=== PATIENT | male | born 1965 | race Caucasian/White ===

== ENCOUNTER 2019-11-02 14:21 | Outpatient (CLI) | payer MEDICAID | END 2019-11-02 14:22 | disposition critical access hospital (66) | LOC: EMS 14:21 | PROVIDERS: ATTEND Surgery | DX: R20.0 Anesthesia of skin (principal) | CPT/HCPCS: A0425; A0429 ==

== ENCOUNTER 2019-11-02 14:58 | Emergency (ER) | payer MEDICAID ==
--- NOTE | 2019-11-02 15:18 | ED Physician Documentation ---
History of Present Illness - Stated complaint Stated Complaint: ETOH - Chief complaint Chief Complaint: General - History obtained from History obtained from: Patient, EMS - History of Present Illness Timing: Other (54-year-old gentleman presents by ambulance, he was using alcohol heavily over the holidays and is now cutting down. He had what he thought was a tooth infection causing some mild numbness and swelling of the left face which then kind of freaked him out. He also was feeling dizzy and could not hear out of the right ear. He denied weakness numbness or tingling in the arms or legs. No headache. Noted to have a lot of PVCs by paramedics on the way in.) Review of Systems Constitutional: denies: Fever, Chills Cardiac: denies: Chest pain / pressure, Palpitations Respiratory: denies: Dyspnea, Cough PD PAST MEDICAL HISTORY - Allergies Allergies/Adverse Reactions: Allergies Allergy/AdvReac Type Severity Reaction Status Date / Time No Known Drug Allergies Allergy Verified 11/02/19 15:06 PD ED PE NORMAL - Vitals Vital signs reviewed: Yes - General General: Alert and oriented X 3, No acute distress - HEENT HEENT: PERRL, EOMI, Other (He had a right sided cerumen impaction. No obvious dental infection. No trismus. 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 I recommended labs and a CT of the head which he refused. He only wants his right ear irrigated to remove cerumen which was done successfully. Departure - Departure Disposition: 01 Home, Self Care Clinical Impression: Impacted cerumen of right ear Condition: Good Record reviewed to determine appropriate education?: Yes Instructions: ED Alcohol Abuse Comments: Call your doctor to arrange a follow-up appointment, make the next available appointment. In the interim, return anytime if worse or if new symptoms develop. Your blood pressure was elevated today on check into the emergency department. This does not mean that you have hypertension, it is a common phenomenon to come to the emergency department and have elevated blood pressure. I recommend that you see your primary care physician within the week to have it rechecked when you are feeling better.
[2019-11-02 16:34] VITALS: BP 155/101
== END 2019-11-02 16:00 | disposition home or self-care (01) ==
LOC: ED 14:58
DX: H61.21 Impacted cerumen, right ear (principal); R20.0 Anesthesia of skin; R03.0 Elevated blood-pressure reading, without diagnosis of hypertension
CPT/HCPCS: 69209; 99282; 99283

== ENCOUNTER 2020-03-14 20:33 | Outpatient (CLI) | payer SELFPAY | END 2020-03-14 20:34 | disposition critical access hospital (66) | LOC: EMS 20:33 | PROVIDERS: ATTEND Surgery | DX: R53.1 Weakness (principal); R53.83 Other fatigue; Z72.89 Other problems related to lifestyle | CPT/HCPCS: A0425; A0427 ==

== ENCOUNTER 2020-03-14 21:08 | Inpatient (IN) | payer SELFPAY ==
--- NOTE | 2020-03-14 21:23 | ED Physician Documentation ---
PD HPI DYSPNEA - Stated complaint Stated Complaint: SOA - Chief complaint Chief Complaint: Resp - History obtained from History obtained from: Patient, EMS - History of Present Illness Timing - onset: Other (54-year-old gentleman who is generally healthy other than. He is been drinking heavier than usual over the last month or month and a half because he is been working from home. Over the last week or so he describes shortness of breath, fatigue, excessive sleepiness, poor appetite. He denies any chest pain. He does have a mild cough. No dark or tarry stools. No vomiting. Brought in by ambulance and noted to have significant ectopy on the way in. Received thiamine 100 mg IV from EMS.) Review of Systems Ten Systems: 10 systems reviewed and negative Constitutional: denies: Fever, Chills Nose: denies: Rhinorrhea / runny nose, Congestion Throat: denies: Sore throat Cardiac: denies: Chest pain / pressure, Palpitations, Pedal edema, Calf pain Respiratory: reports: Dyspnea, Cough GI: denies: Abdominal Pain, Nausea, Vomiting, Constipation, Diarrhea, Hematemesis, Bloody / black stool PD PAST MEDICAL HISTORY - Present Medications Home Medications: Ambulatory Orders Medication Instructions Recorded Confirmed No Known Home Medications 03/14/20 03/14/20 - Allergies Allergies/Adverse Reactions: Allergies Allergy/AdvReac Type Severity Reaction Status Date / Time No Known Drug Allergies Allergy Verified 03/14/20 21:21 PD ED PE NORMAL - Vitals Vital signs reviewed: Yes - General General: Alert and oriented X 3, No acute distress - HEENT HEENT: PERRL, EOMI - Neck Neck: Supple, no meningeal sign, No bony TTP - Cardiac Cardiac: No murmur, Other (Frequent ectopy) - Respiratory Respiratory: No respiratory distress, Other (diminished L base) - Abdomen Abdomen: Non tender, Non distended - Back Back: No CVA TTP, No spinal TTP - Derm Derm: Normal color, Warm and dry - Extremities Extremities: No edema, No calf tenderness / cord - Neuro Neuro: Alert and oriented X 3, Normal speech Results - Vitals Vitals: Vital Signs - 24 hr 03/14/20 03/14/20 21:10 21:53 Temperature 36.9 C Heart Rate 101 H 96 Respiratory 13 15 Rate Blood Pressure 110/78 145/97 H O2 Saturation 100 98 Oxygen O2 Source Room air - EKG (time done) 2130 Rate: Rate (enter#) (98) Rhythm: NSR (freq pvcs) [place]: LAD Intervals: Normal DE QRS: Normal Ischemia: Normal ST segments Computer interpretation: Agree with computer - Labs Labs: Laboratory Tests 03/14/20 03/14/20 03/14/20 21:35 21:35 21:35 WBC 5.9 RBC 4.82 Hgb 15.7 Hct 45.3 MCV 94.0 MCH 32.6 H MCHC 34.7 RDW 14.1 Plt Count 165 MPV 10.4 Neut # (Auto) 2.7 Lymph # (Auto) 2.3 [place] # (Auto) 0.8 Eos # (Auto) 0.1 Baso # (Auto) 0.1 Absolute Nucleated RBC 0.00 Nucleated RBC % 0.0 Sodium 138 Potassium 3.8 Chloride 103 Carbon Dioxide 22 Anion Gap 13.0 BUN 10 Creatinine 0.5 L Estimated GFR (MDRD) 172 Glucose 103 H Calcium 8.0 L Magnesium 2.0 Total Bilirubin 0.6 AST 144 H ALT 101 H Alkaline Phosphatase 57 Troponin I High Sens 7.2 B-Natriuretic Peptide Total Protein 7.1 Albumin 4.0 Globulin 3.1 Albumin/Globulin Ratio 1.3 Lipase 78 H Ethyl Alcohol 379.0 03/14/20 21:35 WBC RBC Hgb Hct MCV MCH MCHC RDW Plt Count MPV Neut # (Auto) Lymph # (Auto) [place] # (Auto) Eos # (Auto) Baso # (Auto) Absolute Nucleated RBC Nucleated RBC % Sodium Potassium Chloride Carbon Dioxide Anion Gap BUN Creatinine Estimated GFR (MDRD) Glucose Calcium Magnesium Total Bilirubin AST ALT Alkaline Phosphatase Troponin I High Sens B-Natriuretic Peptide 16 Total Protein Albumin Globulin Albumin/Globulin Ratio Lipase Ethyl Alcohol PD MEDICAL DECISION MAKING - ED course ED course: 54yo alcoholic with L base PNA and short episodic Vtach per EMS on route. ++ PVCS here. BA high. Labs with mils transaminitis. CXR L bas ePNA with effusion Given rocephin/azithro p BCX x 2, and also given flagyl given EtOH. Dr Pearce will obs given all of the above. Departure - Departure Disposition: ED Place in Observation Clinical Impression: Pneumonia, Ventricular tachycardia Condition: Serious Discharge Date/Time: 03/14/20 22:59
[2020-03-14 21:40] LABS: BASOPHILS # (AUTO) 0.1 10^3/uL (0.0-0.1); BASOPHILS % (AUTO) 0.9 %; EOSINOPHILS # (AUTO) 0.1 10^3/uL (0.0-0.7); EOSINOPHILS % (AUTO) 1.7 %; HGB - HEMOGLOBIN 15.7 g/dL (14.0-18.0); LYMPHOCYTES # (AUTO) 2.3 10^3/uL (1.5-3.5); LYMPHOCYTES % (AUTO) 38.6 %; MEAN CORPUSCULAR HEMOGLOBIN 32.6 pg (27.0-31.0); MEAN CORPUSCULAR HGB CONC 34.7 g/dL (32.0-36.0); MEAN PLATELET VOLUME 10.4 fL (7.4-11.4); MONOCYTES # (AUTO) 0.8 10^3/uL (0.0-1.0); MONOCYTES % (AUTO) 12.8 %; NEUTROPHILS # (AUTO) 2.7 10^3/uL (1.5-6.6); NEUTROPHILS % (AUTO) 45.7 %; PLT - PLATELET COUNT 165 10^3/uL (130-450); RED BLOOD COUNT 4.82 10^6/uL (4.70-6.10); RED CELL DISTRIBUTION WIDTH 14.1 % (12.0-15.0); WHITE BLOOD COUNT 5.9 x10^3/uL (4.8-10.8)
--- NOTE | 2020-03-14 21:47 | XRAY Report ---
Reason: dyspnea Procedure Date: 03/14/2020 Accession Number: [id number] / [id number] Procedure: XR - Chest 1 View X-Ray CPT Code: 83759 Final Report FULL RESULT: EXAM: CHEST RADIOGRAPHY EXAM DATE: 03/14/2020 09:37 PM. CLINICAL HISTORY: Dyspnea. COMPARISON: None. TECHNIQUE: 1 view. FINDINGS: Lungs/Pleura: Moderate left basilar consolidation with small left pleural effusion. Findings most consistent with left basilar pneumonia with synpneumonic effusion. No pneumothorax. Mediastinum: Within exam limitations, the cardiomediastinal contour is normal. Other: None. IMPRESSION: Moderate left basilar consolidation with small left pleural effusion. Findings most consistent with left basilar pneumonia with synpneumonic effusion. Follow up to complete resolution is recommended. RADIA
[2020-03-14] MEDS ORDERED: cefTRIAXone 2 GM in SODIUM CHLORIDE 0.9% MINIBAG 100 ML IV STA (21:53)
[2020-03-14] MEDS ORDERED: AZITHROMYCIN INJ 500 MG in SODIUM CHLORIDE 0.9% 250 ML IV STA (21:53)
[2020-03-14 21:54] LABS: ALBUMIN/GLOBULIN RATIO 1.3 (1.0-2.2); BILIRUBIN,TOTAL 0.6 mg/dL (0.2-1.0); CREATININE 0.5 mg/dL (0.6-1.2); TOTAL PROTEIN 7.1 g/dL (6.7-8.2)
[2020-03-14] MEDS ORDERED: metroNIDAZOLE 500 MG/100 ML 500 MG/100 ML BAG IV ONE (22:07)
[2020-03-14] MEDS ORDERED: oxyCODONE 5 MG TABLET PO PRN (22:07)
[2020-03-14] MEDS ORDERED: MORPHINE 2 MG/ML CARPUJECT IVP PRN (22:07)
[2020-03-14] MEDS ORDERED: ONDANSETRON ODT 4 MG TABLET TL PRN (22:07)
[2020-03-14] MEDS ORDERED: PROCHLORPERAZINE 10 MG/2 ML VIAL IVP PRN (22:07)
[2020-03-14] MEDS ORDERED: IBUPROFEN 400 MG TABLET PO PRN (22:07)
[2020-03-14] MEDS ORDERED: METOPROLOL 5 MG/5 ML VIAL IVP PRN (22:10)
--- NOTE | 2020-03-14 22:56 | HISTORY & PHYSICAL EXAMINATION ---
Chief Complaint - Chief Complaint Chief Complaint: Weakness and shortness of breath for 1 week History of Present Illness - Admitted From Admitted From:: Emergency department - History Obtained From Records Reviewed: Emergency department records History obtained from: Patient and Dr. Kline Exam Limitations: None - History of Present Illness HPI Comment/Other: Patient is a 54-year-old male with no known past medical history with the exception of self-admitted alcoholism and anxiety who presents to the emergency room for evaluation of predominantly weakness also associated with shortness of breath progressively worsened x1 week. 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 He denies any known sick contacts, in particular no known contacts to anyone diagnosed with novel coronavirus infection. He denies any documented fever but admits to a couple of episodes of mild subjective fever over the last 1 week. Minimal but noticeable shortness of breath and some coughing have also been present. In the emergency room he was evaluated and found to have a left-sided consolidation consistent with pneumonia in addition to left-sided pleural effusi on. In route to the hospital by EMS the patient was also noted to have multiple episodes of ectopy with a couple of brief runs of ventricular tachycardia, at about 3-4 beats. Patient has not been hypoxic and has a normal white blood cell count, but because of the patient's history of alcoholism with PVCs and paroxysmal ventricular tachycardia along with a diagnosis of pneumonia with a pleural ef fusion, it was thought best to seek hospital observation rather than discharge home. He was given a single dose of Rocephin and azithromycin for community- acquired pneumonia with the addition of Flagyl to cover for any possible aspiration. History - Past Medical History Cardiovascular: reports: Other (Patient thinks he has had history of tachycardia and PVCs and states that about 17 years ago he had an angiogram to evaluate this and it was normal.) Respiratory: reports: None Neuro: reports: None Endocrine/Autoimmune: reports: None : reports: Other Psych: reports: Anxiety MRSA Hx?: No Other Past Medical History: Testicular CA - Past Surgical History Other past surgical history: Patient was diagnosed with testicular cancer in his 30s and had a peritoneal lymph node resection related to this. - Family & Social History Family History Comment/Other: Mother in her 80s with a stroke, father in his 80s with esophageal cancer, older brother has had heart surgery Living arrangement: At home Living Situation: Alone Social History Notes: Patient lives alone, with his 2 cats. He is not nor has children. - Substance History Use: Uses substance without health or social issues: Tobacco (Smokes about 1 pack per), Alcohol (Admits that over the last couple of months his alcohol intake has increased and he is now up to about 1/5 of vodka per day. His last attempt at cessation was about 3 years ago and he admits to having self treated symptoms of withdrawal at home.) Abuse: Recurrent use of substance despite neg consequences: Alcohol Dependence Issues: Anxiety Disorder - POLST Patient has POLST: No POLST Status: Full Code Meds/Allgy - Home Medications Home Medications: Ambulatory Orders Medication Instructions Recorded Confirmed No Known Home Medications 03/14/20 03/14/20 - Allergies Allergies/Adverse Reactions: Allergies Allergy/AdvReac Type Severity Reaction Status Date / Time No Known Drug Allergies Allergy Verified 03/14/20 21:21 Review of Systems - Constitutional Constitutional: reports: Fatigue, Fever, Chills, Malaise, Weakness. denies: Night sweats - Cardiovascular Cariovascular: denies: Irregular heart rate, Palpitations, Chest pain - Respiratory Respiratory: reports: Cough, SOB with exertion. denies: Sputum production, Wheezing - All Other Systems All Other Systems: reports: Reviewed and negative Prior Level of Functionality: Fully independent Exam - Vital Signs Reviewed Vital Signs: Yes Vital Signs: Vital Signs x48h Temp Pulse Resp BP Pulse Ox 03/14/20 22:16 37.1 C 94 20 129/73 97 03/14/20 21:53 96 15 145/97 H 98 03/14/20 21:10 36.9 C 101 H 13 110/78 100 - Physical Exam General Appearance: positive: No acute distress Eyes Bilateral: positive: Normal inspection ENT: positive: ENT inspection nml Neck: positive: Nml inspection, Thyroid nml, No JVD Respiratory: positive: Chest non-tender, No respiratory distress, Breath sounds nml Cardiovascular: positive: No murmur, No gallop, Irregularly irregular, Extrasystoles Peripheral Pulses: positive: 2+ Abdomen: positive: Non-tender, No organomegaly, Nml bowel sounds Rectal: positive: Non-tender Back: positive: Nml inspection Skin: positive: Color nml, No rash, Warm Extremities: positive: No pedal edema Neurologic/Psychiatric: positive: Oriented x3 Sepsis Event Note (H) - Evaluation Current Stage of Sepsis: Ruled out Conclusion/Plan - Problem List (1) Pneumonia involving left lung Conclusion/Plan: Patient likely has community-acquired pneumonia, and though he does have a history of alcohol abuse, has not shown anything that would suggest an increased likelihood for aspiration as he is not grossly altered, lethargic, somnolent etc. In addition, his chest x-ray findings showing left basilar pneumonia rather than right to make this less likely. In any case, patient will be empirically treated with Rocephin and azithromycin as is typical, with the addition of Flagyl pending clinical course although I would anticipate within 24 hours the Flagyl could be discontinued if he remains afebrile and has no elevated white blood cell count. Patient will be kept in observation rather than admission given no oxygen requirements and afebrile with no elevated white blood cell count. In addition, although the patient does not have hallmark features of the novel coronavirus infection I will check this as a rule out, given the significant weakness he describes in addition to the shortness of breath. Qualifiers: Pneumonia type: due to unspecified organism Lung location: lower lobe of lung Qualified Code(s): J18.9 - Pneumonia, unspecified organism (2) PVCs (premature ventricular contractions) Conclusion/Plan: EKG and troponin show no acute findings suggestive of acute ischemia.Patient has a history of these apparently, and he has been tachycardic since admission. We will add metoprolol IV as needed for tachycardia, continue to monitor with telemetry overnight and if otherwise stable can discharge with outpatient work- up. (3) Alcohol abuse Conclusion/Plan: Patient admits to increased alcohol intake over the last couple of months and dealing with the coronavirus pandemic. Has a self-reported history of withdrawal symptoms. We will add as needed Ativan and CIWA protocol to monitor for signs of withdrawal. In addition, I have counseled to quit, and would recommend social work consult in the a.m. for substance abuse counseling. (4) Generalized anxiety disorder Conclusion/Plan: Patient is a history of untreated generalized anxiety disorder. We will add Ativan as needed for withdrawal, monitor for signs of more acute anxiety and otherwise recommend outpatient evaluation and treatment. (5) Tobacco abuse Conclusion/Plan: Patient smokes about 1 pack/week and states he does not need a nicotine patch. I have counseled him to quit. - Lab Results Lab results reviewed: Yes Fish Bones: 03/14/20 21:35 03/14/20 21:35 - Diagnostic Imaging Results Diagnostic Imaging Results: positive: Final report reviewed - EKG Results EKG Interpreted Independently: Yes Core Measures - Anticipated LOS I expect patient to be DC'd or transferred within 96 hours.: Yes - DVT/VTE - Prophylaxis VTE/DVT Device ordered at admit?: Yes
[2020-03-14] MEDS ORDERED: metroNIDAZOLE 500 MG/100 ML 500 MG/100 ML BAG IV SCH (23:00)
[2020-03-15] MEDS: LORazepam 2 MG/ML VIAL IVP PRN ×9 (00:01→20:03)
[2020-03-15] MEDS: SODIUM CHLORIDE FLUSH 0.9% 10 ML SYRINGE IVP SCH ×3 (02:29→16:11)
[2020-03-15 06:09] LABS: HGB - HEMOGLOBIN 14.3 g/dL (14.0-18.0); MEAN CORPUSCULAR HEMOGLOBIN 32.8 pg (27.0-31.0); MEAN CORPUSCULAR HGB CONC 34.5 g/dL (32.0-36.0); MEAN CORPUSCULAR VOLUME 95.2 fL (80.0-94.0); MEAN PLATELET VOLUME 10.4 fL (7.4-11.4); RED BLOOD COUNT 4.36 10^6/uL (4.70-6.10); RED CELL DISTRIBUTION WIDTH 14.3 % (12.0-15.0); WHITE BLOOD COUNT 6.2 x10^3/uL (4.8-10.8)
[2020-03-15 06:18] LABS: CALCIUM 7.5 mg/dL (8.5-10.3); CREATININE 0.6 mg/dL (0.6-1.2)
[2020-03-15] MEDS: PANTOPRAZOLE 40 MG TABLET PO SCH (06:38)
[2020-03-15 07:42] LABS: ALBUMIN 3.6 g/dL (3.2-5.5); BILIRUBIN,DIRECT 0.1 mg/dL (0.1-0.5); BILIRUBIN,TOTAL 0.7 mg/dL (0.2-1.0); TOTAL PROTEIN 6.4 g/dL (6.7-8.2)
[2020-03-15] MEDS ORDERED: THIAMINE 100 MG TABLET PO SCH (09:00)
[2020-03-15] MEDS ORDERED: PRENATAL VITAMIN TABLET PO SCH (09:00)
[2020-03-15] MEDS ORDERED: cefTRIAXone 2 GM in SODIUM CHLORIDE 0.9% MINIBAG 100 ML IV SCH (09:00)
[2020-03-15] MEDS: metroNIDAZOLE 500 MG/100 ML 500 MG/100 ML BAG IV SCH ×2 (09:04→16:10)
[2020-03-15] MEDS ORDERED: MULTIVITAMIN 10 ML, THIAMINE INJ 100 MG, FOLIC ACID INJ 1 MG in D5.45NS W/20 MEQ KCL 1,... IV SCH (10:00)
[2020-03-15] MEDS: AZITHROMYCIN INJ 500 MG in SODIUM CHLORIDE 0.9% 250 ML IV SCH (10:04)
[2020-03-15] MEDS: cefTRIAXone 2 GM in SODIUM CHLORIDE 0.9% MINIBAG 100 ML IV SCH (10:29)
--- NOTE | 2020-03-15 11:45 | PHARMACY PROGRESS NOTE ---
- Best Possible Medication History Admit Date and Time: 03/14/202206 Processed by: Pharmacy Medication History completed: Yes Patient Interview: Pt unable to participate Secondary Source(s): Insurance records (CONFIRMED WITH NURSE WHO SAYS PATIENT STATES HE DOES NOT TAKE ANY HOME MEDICATIONS) As the person ultimately responsible for medication therapy, providers are able to order a medication from an existing home medication list in [facility] via the "Reconcile Routine" prior to Confirmation of that medication by manager support services. Such practice is discouraged except when the physician, in their clinical judgment, deems that a medical need exists for a medication without regard to previous use.
--- NOTE | 2020-03-15 12:42 | PROVIDER PROGRESS NOTE ---
Subjective - Prog Note Date Prog Note Date: 03/15/20 - Subjective Pt reports feeling: Improved Subjective: pt report his breath is better, he denies fever, chill, chest pain. he report he took alcohol for quit long time and increase intake of alcohol recently. His hand is shaking, present restless. it is likely pt is with alcohol withdrawal Current Medications - Current Medications Current Medications: Active Medications Chlordiazepoxide HCl (Librium) 5 mg PO Q6HR PRN PRN Reason: Alcohol Withdrawal Azithromycin 500 mg/ Sodium (Chloride) 250 mls @ 250 mls/hr IV DAILY [facility] Stop: 03/16/20 09:59 Last Infusion: 03/15/20 11:10 Dose: Infused Metronidazole (Flagyl 500 Mg/100 Ml) 500 mg in 100 mls @ 100 mls/hr IV Q8H [facility] Last Infusion: 03/15/20 10:15 Dose: Infused Ceftriaxone Sodium 2 gm/ (Sodium Chloride) 100 mls @ 200 mls/hr IV Q24H [facility] Stop: 03/18/20 10:59 Last Infusion: 03/15/20 11:10 Dose: Infused Multivitamins 10 ml/ Thiamine HCl 100 mg/ Folic Acid 1 mg/Potassium Chloride/Dextrose/Sod Cl 1,011.2 mls @ 100 mls/hr IV DAILY [facility] Ibuprofen (Motrin) 400 mg PO Q4HR PRN PRN Reason: Pain 1 to 4 Lorazepam (Ativan Inj (Vial)) 2 mg IVP Q2HR PRN PRN Reason: Alcohol Withdrawal Last Admin: 03/15/20 11:12 Dose: 2 mg Metoprolol Tartrate (Lopressor Inj) 5 mg IVP Q2HR PRN PRN Reason: Tachycardia Morphine Sulfate (Morphine (Carpuject)) 2 mg IVP Q2HR PRN PRN Reason: Pain 8 to 10 Ondansetron HCl (Zofran Odt) 4 mg TL Q6HR PRN PRN Reason: Nausea / Vomiting Oxycodone HCl (Roxicodone) 5 mg PO Q4HR PRN PRN Reason: Pain 5 to 7 Pantoprazole Sodium (Protonix) 40 mg PO QDAC [facility] Last Admin: 03/15/20 06:38 Dose: 40 mg Prochlorperazine Edisylate (Compazine Inj) 10 mg IVP Q6HR PRN PRN Reason: Nausea / Vomiting Sodium Chloride (Normal Saline Flush 0.9%) 10 ml IVP PRN PRN PRN Reason: NEEDED PER PROVIDER ORDERS Sodium Chloride (Normal Saline Flush 0.9%) 10 ml IVP 0100,0900,1700 [facility] Last Admin: 03/15/20 02:29 Dose: 10 ml No Known Home Medications 03/14/20 Objective - Vital Signs/Intake & Output Vital Signs: Vital Signs x48h Temp Pulse Resp BP Pulse Ox 03/15/20 11:18 37.0 C 87 16 116/62 99 03/15/20 08:15 36.6 C 93 16 117/73 98 03/15/20 05:00 36.9 C 95 14 125/76 95 Intake & Output: Intake & Output 03/12/20 03/13/20 03/14/20 03/15/20 23:59 23:59 23:59 23:59 Intake Total 1058.473 4444.333 Balance 3846.954 3181.333 - Objective General Appearance: positive: Alert, Mild distress. negative: Lethargic Eyes Bilateral: positive: Normal inspection, PERRL, No lid inflammation ENT: positive: ENT inspection nml, Pharynx nml, No signs of dehydration. negative: Purulent nasal drainage Neck: positive: Nml inspection, Thyroid nml, Trachea midline. negative: Thyrome todd, Stiff neck, Tracheal deviation Respiratory: positive: Chest non-tender, No respiratory distress, Rhonchi. negative: Wheezes, Rales Cardiovascular: positive: Regular rate & rhythm, No murmur, No gallop. negative: Tachycardia, Bradycardia, Systolic murmur, Diastolic murmur Peripheral Pulses: 2+ Radial (R), 2+ Radial (L) Abdomen: positive: Non-tender, No organomegaly, Nml bowel sounds, No distention. negative: Tenderness, Guarding, Rebound Back: positive: Nml inspection. negative: CVA tenderness (R), CVA tenderness (L) Skin: positive: Color nml, No rash, Warm, Dry. negative: Cyanosis, Diaphoresis, Pallor Extremities: positive: Non-tender, Full ROM, Nml appearance. negative: Calf tenderness, Wei's sign/cords Neurologic/Psychiatric: positive: Oriented x3, Motor nml, Sensation nml. negative: Weakness, Sensory loss, Facial droop, Slurred/abnml speech - Lab Results Fish Bones: 03/15/20 05:40 03/15/20 05:40 Other Labs: Lab Results x24hrs 03/15/20 03/15/20 03/15/20 Range/Units 05:40 05:40 05:40 WBC 6.2 (4.8-10.8) x10^3/uL RBC 4.36 L (4.70-6.10) 10^6/uL Hgb 14.3 (14.0-18.0) g/dL Hct 41.5 L (42.0-52.0) % MCV 95.2 H (80.0-94.0) fL MCH 32.8 H (27.0-31.0) pg MCHC 34.5 (32.0-36.0) g/dL RDW 14.3 (12.0-15.0) % Plt Count 144 (130-450) 10^3/uL MPV 10.4 (7.4-11.4) fL Neut # (Auto) (1.5-6.6) 10^3/uL Lymph # (Auto) (1.5-3.5) 10^3/uL Travis # (Auto) (0.0-1.0) 10^3/uL Eos # (Auto) (0.0-0.7) 10^3/uL Baso # (Auto) (0.0-0.1) 10^3/uL Absolute Nucleated RBC x10^3/uL Nucleated RBC % /100WBC Sodium 137 (135-145) mmol/L Potassium 3.5 (3.5-5.0) mmol/L Chloride 103 (101-111) mmol/L Carbon Dioxide 21 (21-32) mmol/L Anion Gap 13.0 (6-13) BUN 13 (6-20) mg/dL Creatinine 0.6 (0.6-1.2) mg/dL Estimated GFR (MDRD) 139 (>89) Glucose 76 (70-100) mg/dL Lactic Acid (0.5-2.2) mmol/L Calcium 7.5 L (8.5-10.3) mg/dL Magnesium (1.7-2.8) mg/dL Total Bilirubin 0.7 (0.2-1.0) mg/dL Direct Bilirubin 0.1 (0.1-0.5) mg/dL AST 178 H (10-42) IU/L ALT 100 H (10-60) IU/L Alkaline Phosphatase 48 (42-121) IU/L Troponin I High Sens (2.3-19.7) ng/L B-Natriuretic Peptide (5-100) pg/mL Total Protein 6.4 L (6.7-8.2) g/dL Albumin 3.6 (3.2-5.5) g/dL Globulin 2.8 (2.1-4.2) g/dL Albumin/Globulin Ratio (1.0-2.2) Lipase (22-51) U/L Ethyl Alcohol mg/dL 03/14/20 03/14/20 03/14/20 Range/Units 22:09 21:35 21:35 WBC (4.8-10.8) x10^3/uL RBC (4.70-6.10) 10^6/uL Hgb (14.0-18.0) g/dL Hct (42.0-52.0) % MCV (80.0-94.0) fL MCH (27.0-31.0) pg MCHC (32.0-36.0) g/dL RDW (12.0-15.0) % Plt Count (130-450) 10^3/uL MPV (7.4-11.4) fL Neut # (Auto) (1.5-6.6) 10^3/uL Lymph # (Auto) (1.5-3.5) 10^3/uL Travis # (Auto) (0.0-1.0) 10^3/uL Eos # (Auto) (0.0-0.7) 10^3/uL Baso # (Auto) (0.0-0.1) 10^3/uL Absolute Nucleated RBC x10^3/uL Nucleated RBC % /100WBC Sodium (135-145) mmol/L Potassium (3.5-5.0) mmol/L Chloride (101-111) mmol/L Carbon Dioxide (21-32) mmol/L Anion Gap (6-13) BUN (6-20) mg/dL Creatinine (0.6-1.2) mg/dL Estimated GFR (MDRD) (>89) Glucose (70-100) mg/dL Lactic Acid 1.7 (0.5-2.2) mmol/L Calcium (8.5-10.3) mg/dL Magnesium (1.7-2.8) mg/dL Total Bilirubin (0.2-1.0) mg/dL Direct Bilirubin (0.1-0.5) mg/dL AST (10-42) IU/L ALT (10-60) IU/L Alkaline Phosphatase (42-121) IU/L Troponin I High Sens 7.2 (2.3-19.7) ng/L B-Natriuretic Peptide 16 (5-100) pg/mL Total Protein (6.7-8.2) g/dL Albumin (3.2-5.5) g/dL Globulin (2.1-4.2) g/dL Albumin/Globulin Ratio (1.0-2.2) Lipase (22-51) U/L Ethyl Alcohol mg/dL 03/14/20 03/14/20 Range/Units 21:35 21:35 WBC 5.9 (4.8-10.8) x10^3/uL RBC 4.82 (4.70-6.10) 10^6/uL Hgb 15.7 (14.0-18.0) g/dL Hct 45.3 (42.0-52.0) % MCV 94.0 (80.0-94.0) fL MCH 32.6 H (27.0-31.0) pg MCHC 34.7 (32.0-36.0) g/dL RDW 14.1 (12.0-15.0) % Plt Count 165 (130-450) 10^3/uL MPV 10.4 (7.4-11.4) fL Neut # (Auto) 2.7 (1.5-6.6) 10^3/uL Lymph # (Auto) 2.3 (1.5-3.5) 10^3/uL Travis # (Auto) 0.8 (0.0-1.0) 10^3/uL Eos # (Auto) 0.1 (0.0-0.7) 10^3/uL Baso # (Auto) 0.1 (0.0-0.1) 10^3/uL Absolute Nucleated RBC 0.00 x10^3/uL Nucleated RBC % 0.0 /100WBC Sodium 138 (135-145) mmol/L Potassium 3.8 (3.5-5.0) mmol/L Chloride 103 (101-111) mmol/L Carbon Dioxide 22 (21-32) mmol/L Anion Gap 13.0 (6-13) BUN 10 (6-20) mg/dL Creatinine 0.5 L (0.6-1.2) mg/dL Estimated GFR (MDRD) 172 (>89) Glucose 103 H (70-100) mg/dL Lactic Acid (0.5-2.2) mmol/L Calcium 8.0 L (8.5-10.3) mg/dL Magnesium 2.0 (1.7-2.8) mg/dL Total Bilirubin 0.6 (0.2-1.0) mg/dL Direct Bilirubin (0.1-0.5) mg/dL AST 144 H (10-42) IU/L ALT 101 H (10-60) IU/L Alkaline Phosphatase 57 (42-121) IU/L Troponin I High Sens (2.3-19.7) ng/L B-Natriuretic Peptide (5-100) pg/mL Total Protein 7.1 (6.7-8.2) g/dL Albumin 4.0 (3.2-5.5) g/dL Globulin 3.1 (2.1-4.2) g/dL Albumin/Globulin Ratio 1.3 (1.0-2.2) Lipase 78 H (22-51) U/L Ethyl Alcohol 379.0 mg/dL ABX Reporting Has patient been on IV antibiotics over the past 48 hours?: Yes Sepsis Event Note (H) - Evaluation Current Stage of Sepsis: Ruled out Assessment/Plan - Problem List (1) Pneumonia involving left lung Impression: pt report he feel better for his breath. his chest x-ray findings showing left basilar pneumonia rather than right to make this less likely, indicate it is likely community-acquired pneumonia, discontinue Flagyl after 24 hours, continue Azithromycin and Rocephin (2) PVCs (premature ventricular contractions) Conclusion/Plan: 03/15 stable as far without tachycardia now. EKG and troponin show no acute findings suggestive of acute ischemia in the admission. continue tele and vital monitor (3) Alcohol abuse Conclusion/Plan: pt present acute alcohol withdrawal now. add Librium PRN, continue CIWA protocol, add and Vitamin B1, will add banana bag. (4) Generalized anxiety disorder Conclusion/Plan: stable, continue ativan PRN (5) Tobacco abuse Conclusion/Plan: counseled him to quit. Qualifiers: Pneumonia type: due to unspecified organism Lung location: lower lobe of lung Qualified Code(s): J18.9 - Pneumonia, unspecified organism
[2020-03-15] MEDS ORDERED: chlordiazePOXIDE 25 MG CAPSULE PO SCH (14:00)
[2020-03-15] MEDS: SACCHAROMYCES BOULARDII 250 MG CAPSULE PO SCH (17:42)
[2020-03-15] MEDS: SODIUM CHLORIDE FLUSH 0.9% 10 ML SYRINGE IVP PRN ×2 (17:43→20:02)
[2020-03-16] MEDS: SODIUM CHLORIDE FLUSH 0.9% 10 ML SYRINGE IVP SCH ×4 (00:02→23:31)
[2020-03-16] MEDS: chlordiazePOXIDE 5 MG CAPSULE PO PRN ×3 (00:02→22:09)
[2020-03-16] MEDS: LORazepam 2 MG/ML VIAL IVP PRN ×5 (05:05→22:59)
[2020-03-16] MEDS: SODIUM CHLORIDE FLUSH 0.9% 10 ML SYRINGE IVP PRN (05:06)
[2020-03-16] MEDS: PANTOPRAZOLE 40 MG TABLET PO SCH (05:50)
[2020-03-16 07:10] LABS: HGB - HEMOGLOBIN 14.2 g/dL (14.0-18.0); MEAN CORPUSCULAR HEMOGLOBIN 32.3 pg (27.0-31.0); MEAN CORPUSCULAR HGB CONC 34.5 g/dL (32.0-36.0); MEAN CORPUSCULAR VOLUME 93.6 fL (80.0-94.0); MEAN PLATELET VOLUME 11.1 fL (7.4-11.4); RED BLOOD COUNT 4.4 10^6/uL (4.70-6.10); RED CELL DISTRIBUTION WIDTH 13.7 % (12.0-15.0); WHITE BLOOD COUNT 6.1 x10^3/uL (4.8-10.8)
[2020-03-16 07:24] LABS: CALCIUM 8.3 mg/dL (8.5-10.3); CREATININE 0.5 mg/dL (0.6-1.2)
[2020-03-16] MEDS ORDERED: POTASSIUM CHLORIDE 20 MEQ TABLET PO ONE ×2 (07:35)
[2020-03-16] MEDS ORDERED: MULTIVITAMIN 10 ML, THIAMINE INJ 100 MG, FOLIC ACID INJ 1 MG in D5.45NS W/20 MEQ KCL 1,... IV SCH (09:00)
[2020-03-16] MEDS: AZITHROMYCIN INJ 500 MG in SODIUM CHLORIDE 0.9% 250 ML IV SCH (09:19)
[2020-03-16] MEDS: SACCHAROMYCES BOULARDII 250 MG CAPSULE PO SCH ×2 (09:19→16:19)
--- NOTE | 2020-03-16 10:42 | PROVIDER PROGRESS NOTE ---
Subjective - Prog Note Date Prog Note Date: 03/16/20 - Subjective Subjective: Continues to report feeling weak overall primarily in his legs. He continues to endorse tremors. He denies any chest pain. Reports occasional dyspnea but denies shortness of breath at this time. Denies having a cough. He reports occasional palpitations although infrequent. He states he has a history of a tachyarrhythmia for which she required an ablation in his 40s. He currently does not take any medications. He would like to quit smoking and alcohol. He also tells me that he had a left rib fracture 2 years ago and was treated for pneumonia on an outpatient basis. Current Medications - Current Medications Current Medications: Active Medications Chlordiazepoxide HCl (Librium) 5 mg PO Q6HR PRN PRN Reason: Alcohol Withdrawal Last Admin: 03/16/20 00:02 Dose: 5 mg Ceftriaxone Sodium 2 gm/ (Sodium Chloride) 100 mls @ 200 mls/hr IV Q24H [facility] Stop: 03/18/20 10:59 Last Infusion: 03/15/20 11:10 Dose: Infused Multivitamins 10 ml/ Thiamine HCl 100 mg/ Folic Acid 1 mg/Potassium Chloride/Dextrose/Sod Cl 1,011.2 mls @ 100 mls/hr IV DAILY [facility] Last Admin: 03/16/20 10:33 Dose: 100 mls/hr Ibuprofen (Motrin) 400 mg PO Q4HR PRN PRN Reason: Pain 1 to 4 Lorazepam (Ativan Inj (Vial)) 2 mg IVP Q2HR PRN PRN Reason: Alcohol Withdrawal Last Admin: 03/16/20 10:22 Dose: 2 mg Morphine Sulfate (Morphine (Carpuject)) 2 mg IVP Q2HR PRN PRN Reason: Pain 8 to 10 Ondansetron HCl (Zofran Odt) 4 mg TL Q6HR PRN PRN Reason: Nausea / Vomiting Oxycodone HCl (Roxicodone) 5 mg PO Q4HR PRN PRN Reason: Pain 5 to 7 Pantoprazole Sodium (Protonix) 40 mg PO QDAC [facility] Last Admin: 03/16/20 05:50 Dose: 40 mg Prochlorperazine Edisylate (Compazine Inj) 10 mg IVP Q6HR PRN PRN Reason: Nausea / Vomiting Saccharomyces Boulardii (Florastor) 500 mg PO BIDWM [facility] Last Admin: 03/16/20 09:19 Dose: 500 mg Sodium Chloride (Normal Saline Flush 0.9%) 10 ml IVP PRN PRN PRN Reason: NEEDED PER PROVIDER ORDERS Last Admin: 03/16/20 05:06 Dose: 10 ml Sodium Chloride (Normal Saline Flush 0.9%) 10 ml IVP 0100,0900,1700 [facility] Last Admin: 03/16/20 09:29 Dose: 10 ml No Known Home Medications 03/14/20 Objective - Vital Signs/Intake & Output Reviewed Vital Signs: Yes Vital Signs: Vital Signs x48h Temp Pulse Resp BP Pulse Ox 03/16/20 10:00 37.1 C 92 18 143/93 H 03/16/20 08:37 36.4 C L 87 18 148/92 H 97 03/16/20 04:55 36.5 C 79 20 148/85 H 99 Intake & Output: Intake & Output 03/13/20 03/14/20 03/15/20 03/16/20 23:59 23:59 23:59 23:59 Intake Total 5129.681 2448.000 790 Balance 8933.542 7032.000 790 - Objective General Appearance: positive: No acute distress, Alert Eyes Bilateral: positive: Normal inspection ENT: positive: ENT inspection nml Neck: positive: Nml inspection Respiratory: positive: No respiratory distress, Rales, Other (Diminished breath sounds in the bases). negative: Wheezes Cardiovascular: positive: Regular rate & rhythm, No murmur. negative: Tachycardia, Bradycardia Abdomen: positive: Non-tender, No distention. negative: Tenderness Skin: positive: Warm, Dry Extremities: positive: No pedal edema Neurologic/Psychiatric: positive: Oriented x3, Other (No focal motor deficits. He is tremulous.). negative: Disoriented to person, Disoriented to place - Lab Results Fish Bones: 03/16/20 06:50 03/16/20 06:50 Other Labs: Lab Results x24hrs 03/16/20 03/16/20 Range/Units 06:50 06:50 WBC 6.1 (4.8-10.8) x10^3/uL RBC 4.40 L (4.70-6.10) 10^6/uL Hgb 14.2 (14.0-18.0) g/dL Hct 41.2 L (42.0-52.0) % MCV 93.6 (80.0-94.0) fL MCH 32.3 H (27.0-31.0) pg MCHC 34.5 (32.0-36.0) g/dL RDW 13.7 (12.0-15.0) % Plt Count 108 L (130-450) 10^3/uL MPV 11.1 (7.4-11.4) fL Sodium 135 (135-145) mmol/L Potassium 3.4 L (3.5-5.0) mmol/L Chloride 101 (101-111) mmol/L Carbon Dioxide 25 (21-32) mmol/L Anion Gap 9.0 (6-13) BUN 16 (6-20) mg/dL Creatinine 0.5 L (0.6-1.2) mg/dL Estimated GFR (MDRD) 172 (>89) Glucose 100 (70-100) mg/dL Calcium 8.3 L (8.5-10.3) mg/dL Phosphorus 3.0 (2.5-4.6) mg/dL Magnesium 2.0 (1.7-2.8) mg/dL ABX Reporting Has patient been on IV antibiotics over the past 48 hours?: Yes Sepsis Event Note (H) - Evaluation Current Stage of Sepsis: Ruled out Assessment/Plan - Problem List (1) Alcohol withdrawal Impression: He has shown evidence of alcohol withdrawal with tremors being his most prominent symptom. He has been requiring Ativan throughout the day yesterday and overnight. He is not hallucinating or agitated. He is slightly tachycar dic. We will start him on Librium and continue with Ativan IV as needed. (2) Community acquired pneumonia Impression: He has a left lower lobe consolidation with small left pleural effusion. He is not hypoxic and is afebrile with no white count. I do wonder if this is likely atelectasis given his history of rib fracture in that area and pneumonia in the same area.He remains on ceftriaxone and azithromycin with today being day 3. Will order a follow-up chest x-ray to evaluate for resolution. Based off his x- ray findings, we will either obtain a CT of the chest while he is hospitalized or on an outpatient basis. Qualifiers: Laterality: left Lung location: lower lobe of lung Qualified Code(s): J18.9 - Pneumonia, unspecified organism (3) Alcohol abuse Impression: Social work has been consulted to discuss rehab options. Continue on thiamine and folate. (4) PVCs (premature ventricular contractions) Impression: He has had frequent PVCs on telemetry. Potassium is low this morning this has been replaced. His magnesium is optimized. Unfortunately, echocardiogram is not available over the weekend but if he is here on Wednesday then can consider obtaining one. He does have a history of a tachyarrhythmia and reports undergoing ablation in his 40s. We will continue to monitor him on telemetry. Given he is relatively asymptomatic, will hold off on starting a beta-birdie at this time. We will check a TSH. (5) Tobacco abuse Impression: Smokes a pack per day and has declined a nicotine patch. He would benefit from outpatient low-dose CT scan screening for lung cancer given his smoking history.
[2020-03-16] MEDS: cefTRIAXone 2 GM in SODIUM CHLORIDE 0.9% MINIBAG 100 ML IV SCH (10:58)
--- NOTE | 2020-03-16 11:02 | XRAY Report ---
Reason: Follow up infiltrate. Procedure Date: 03/16/2020 Accession Number: [id number] / [id number] Procedure: XR - Chest 1 View X-Ray CPT Code: 15102 Final Report FULL RESULT: EXAM: CHEST RADIOGRAPHY EXAM DATE: 03/16/2020 09:22 AM. CLINICAL HISTORY: Follow up pulmonary infiltrate. COMPARISON: CHEST 1 VIEW 03/14/2020 9:14 PM. TECHNIQUE: 1 view. FINDINGS: Lungs/Pleura: Persistent left basal opacities suggesting small effusion and atelectasis and/or consolidation. Right lung is clear. Mediastinum: Within exam limitations, the cardiomediastinal contour is normal. Other: None. IMPRESSION: Persistent left basal opacities suggesting small effusion and atelectasis and/or consolidation. RADIA
[2020-03-17] MEDS: LORazepam 2 MG/ML VIAL IVP PRN ×8 (02:09→16:50)
[2020-03-17] MEDS: SODIUM CHLORIDE FLUSH 0.9% 10 ML SYRINGE IVP PRN ×4 (02:09→23:45)
[2020-03-17] MEDS: PANTOPRAZOLE 40 MG TABLET PO SCH (05:29)
[2020-03-17] MEDS: chlordiazePOXIDE 5 MG CAPSULE PO PRN (05:29)
[2020-03-17 06:18] LABS: HGB - HEMOGLOBIN 14.1 g/dL (14.0-18.0); MEAN CORPUSCULAR HEMOGLOBIN 32.2 pg (27.0-31.0); MEAN CORPUSCULAR HGB CONC 34.3 g/dL (32.0-36.0); MEAN CORPUSCULAR VOLUME 93.8 fL (80.0-94.0); MEAN PLATELET VOLUME 11.1 fL (7.4-11.4); RED BLOOD COUNT 4.38 10^6/uL (4.70-6.10); RED CELL DISTRIBUTION WIDTH 13.6 % (12.0-15.0)
[2020-03-17 06:34] LABS: CALCIUM 8.9 mg/dL (8.5-10.3); CREATININE 0.6 mg/dL (0.6-1.2)
[2020-03-17] MEDS: SACCHAROMYCES BOULARDII 250 MG CAPSULE PO SCH ×2 (07:56→15:53)
[2020-03-17] MEDS ORDERED: POTASSIUM CHLORIDE 20 MEQ TABLET PO ONE (09:26)
[2020-03-17] MEDS: SODIUM CHLORIDE FLUSH 0.9% 10 ML SYRINGE IVP SCH ×3 (09:42→23:41)
[2020-03-17] MEDS: chlordiazePOXIDE 25 MG CAPSULE PO SCH ×3 (10:05→21:07)
[2020-03-17] MEDS: MULTIVITAMIN TABLET PO SCH (10:08)
[2020-03-17] MEDS: THIAMINE 100 MG TABLET PO SCH (10:08)
--- NOTE | 2020-03-17 10:10 | PROVIDER PROGRESS NOTE ---
Subjective - Prog Note Date Prog Note Date: 03/17/20 - Subjective Subjective: Patient had eloped this morning and was found in a parking lot but returned to his room. He states that he would like to go home as he needs to take care of his cats and continue his work. He is able to work from here he is not have his cell phone are locked up with him. He reports no chest pain or dyspnea. He is tremulous. He reports that he is able to walk although he feels slightly imbalanced at times. He has required Ativan nearly every 2 hours over the past 24 hours. Current Medications - Current Medications Current Medications: Active Medications Chlordiazepoxide HCl (Librium) 25 mg PO Q6H [facility] Last Admin: 03/17/20 10:05 Dose: 25 mg Ceftriaxone Sodium 2 gm/ (Sodium Chloride) 100 mls @ 200 mls/hr IV Q24H [facility] Stop: 03/18/20 10:59 Last Infusion: 03/16/20 12:28 Dose: Infused Ibuprofen (Motrin) 400 mg PO Q4HR PRN PRN Reason: Pain 1 to 4 Lorazepam (Ativan Inj (Vial)) 2 mg IVP Q2HR PRN PRN Reason: Alcohol Withdrawal Last Admin: 03/17/20 09:41 Dose: 2 mg Multivitamins (Theragran) 1 tab PO DAILYWM [facility] Ondansetron HCl (Zofran Odt) 4 mg TL Q6HR PRN PRN Reason: Nausea / Vomiting Oxycodone HCl (Roxicodone) 5 mg PO Q4HR PRN PRN Reason: Pain 5 to 7 Pantoprazole Sodium (Protonix) 40 mg PO QDAC [facility] Last Admin: 03/17/20 05:29 Dose: 40 mg Prochlorperazine Edisylate (Compazine Inj) 10 mg IVP Q6HR PRN PRN Reason: Nausea / Vomiting Saccharomyces Boulardii (Florastor) 500 mg PO BIDWM [facility] Last Admin: 03/17/20 07:56 Dose: 500 mg Sodium Chloride (Normal Saline Flush 0.9%) 10 ml IVP PRN PRN PRN Reason: NEEDED PER PROVIDER ORDERS Last Admin: 03/17/20 05:56 Dose: 10 ml Sodium Chloride (Normal Saline Flush 0.9%) 10 ml IVP 0100,0900,1700 [facility] Last Admin: 03/17/20 09:42 Dose: 10 ml Thiamine HCl (Vitamin B-1) 100 mg PO DAILY [facility] No Known Home Medications 03/14/20 Objective - Vital Signs/Intake & Output Reviewed Vital Signs: Yes Vital Signs: Vital Signs x48h Temp Pulse Resp BP Pulse Ox 03/17/20 07:15 36.7 C 88 20 136/89 H 96 03/17/20 03:57 36.4 C L 85 20 156/92 H 97 Intake & Output: Intake & Output 03/14/20 03/15/20 03/16/20 03/17/20 23:59 23:59 23:59 23:59 Intake Total 0554.270 8410.000 2937.2 240 Output Total 1100 Balance 4550.004 1600.000 1837.2 240 - Objective General Appearance: positive: No acute distress, Alert Eyes Bilateral: positive: Normal inspection, Conjunctivae nml, Other (Pupils dilated.) ENT: positive: ENT inspection nml Neck: positive: Nml inspection Respiratory: positive: No respiratory distress. negative: Wheezes, Rales Cardiovascular: positive: No murmur, Tachycardia. negative: Irregularly irreg ular, Bradycardia, Systolic murmur Skin: positive: Warm, Dry. negative: Diaphoresis Extremities: positive: Full ROM Neurologic/Psychiatric: positive: Other (He is oriented to self and location. When asked the year initially, he said of the then quickly corrected himself to 2019. When asked the month and she said September and then correct himself after a few seconds and said March. He is quite tremulous even with his arms at his side. He is able to ambulate but he is unsteady and once again tremulous.). negative: Disoriented to person, Disoriented to place, Disoriented to time - Lab Results Fish Bones: 03/17/20 05:55 03/17/20 05:55 Other Labs: Lab Results x24hrs 03/17/20 03/17/20 03/17/20 Range/Units 05:55 05:55 05:55 WBC (4.8-10.8) x10^3/uL RBC (4.70-6.10) 10^6/uL Hgb (14.0-18.0) g/dL Hct (42.0-52.0) % MCV (80.0-94.0) fL MCH (27.0-31.0) pg MCHC (32.0-36.0) g/dL RDW (12.0-15.0) % Plt Count (130-450) 10^3/uL MPV (7.4-11.4) fL Sodium 134 L (135-145) mmol/L Potassium 3.5 (3.5-5.0) mmol/L Chloride 101 (101-111) mmol/L Carbon Dioxide 25 (21-32) mmol/L Anion Gap 8.0 (6-13) BUN 13 (6-20) mg/dL Creatinine 0.6 (0.6-1.2) mg/dL Estimated GFR (MDRD) 139 (>89) Glucose 114 H (70-100) mg/dL Calcium 8.9 (8.5-10.3) mg/dL TSH 9.49 H (0.34-5.60) uIU/mL Free T4 0.86 (0.58-1.64) ng/dL Coronavirus (PCR) 03/17/20 03/15/20 Range/Units 05:55 00:00 WBC 6.0 (4.8-10.8) x10^3/uL RBC 4.38 L (4.70-6.10) 10^6/uL Hgb 14.1 (14.0-18.0) g/dL Hct 41.1 L (42.0-52.0) % MCV 93.8 (80.0-94.0) fL MCH 32.2 H (27.0-31.0) pg MCHC 34.3 (32.0-36.0) g/dL RDW 13.6 (12.0-15.0) % Plt Count 133 (130-450) 10^3/uL MPV 11.1 (7.4-11.4) fL Sodium (135-145) mmol/L Potassium (3.5-5.0) mmol/L Chloride (101-111) mmol/L Carbon Dioxide (21-32) mmol/L Anion Gap (6-13) BUN (6-20) mg/dL Creatinine (0.6-1.2) mg/dL Estimated GFR (MDRD) (>89) Glucose (70-100) mg/dL Calcium (8.5-10.3) mg/dL TSH (0.34-5.60) uIU/mL Free T4 (0.58-1.64) ng/dL Coronavirus (PCR) NEGATIVE ABX Reporting Has patient been on IV antibiotics over the past 48 hours?: Yes Sepsis Event Note (H) - Evaluation Current Stage of Sepsis: Ruled out Assessment/Plan - Problem List (1) Alcohol withdrawal Impression: He is clearly going through alcohol withdrawal and his CIWA is about 12. He is quite tremulous and tachycardic but he is not diaphoretic and has no hallucinations. He does want to go home but I do not feel he is safe to go home given the large amounts of Ativan he is required over the past 24 hours and his current symptoms. After discussion, he is agreeable to staying. We will increase his Librium to 25 mg every 6 hours. Continue with Ativan IV as needed. We will reassess discharge tomorrow. (2) Community acquired pneumonia Impression: He presented with dyspnea found to have an infiltrate in the left base. Is unclear this is pneumonia or possibly atelectasis. He has received 3 days azithromycin and today is day 4 of ceftriaxone. Repeat chest x-ray showed persistent left basal opacities suggesting small effusion atelectasis or cons olidation. He will need a repeat chest x-ray on outpatient basis and if this infiltrate is persistent, he will need a CT of the chest to rule out an underlying mass. Qualifiers: Laterality: left Lung location: lower lobe of lung Qualified Code(s): J18.9 - Pneumonia, unspecified organism (3) Alcohol abuse Impression: He is currently going through alcohol withdrawal. Continue with thiamine and folate. Social work has been consulted. (4) PVCs (premature ventricular contractions) Impression: He continues to have occasional PVCs but he is asymptomatic. TSH is elevated but T4 is within normal limits. We will continue to monitor on telemetry while he is hospitalized. Will consider beta-birdie if his PVCs become more frequent or if he becomes symptomatic. (5) Tobacco abuse Impression: Continue with nicotine patch. He was counseled on smoking cessation and stated that he will try to quit smoking but this will likely be tapered down over a period of time. He is more focused on quitting alcohol.
[2020-03-17] MEDS: cefTRIAXone 2 GM in SODIUM CHLORIDE 0.9% MINIBAG 100 ML IV SCH (11:23)
[2020-03-17] MEDS: METOPROLOL TARTRATE 25 MG TABLET PO SCH ×2 (11:55→21:07)
[2020-03-17] MEDS: NICOTINE 14 MG PATCH TOP SCH (13:58)
[2020-03-17] MEDS ORDERED: LORazepam 2 MG/ML VIAL IVP PRN ×2 (16:52→19:41)
[2020-03-17] MEDS: HALOPERIDOL 5 MG/ML VIAL IVP PRN ×2 (19:55→23:40)
[2020-03-17] MEDS: GABAPENTIN 300 MG CAPSULE PO SCH (21:07)
[2020-03-18] MEDS: GABAPENTIN 300 MG CAPSULE PO SCH ×3 (05:10→21:53)
[2020-03-18] MEDS: chlordiazePOXIDE 25 MG CAPSULE PO SCH (05:10)
[2020-03-18] MEDS: PANTOPRAZOLE 40 MG TABLET PO SCH (05:27)
[2020-03-18] MEDS: THIAMINE 100 MG TABLET PO SCH (08:43)
[2020-03-18] MEDS: NICOTINE 14 MG PATCH TOP SCH (08:43)
[2020-03-18] MEDS: METOPROLOL TARTRATE 25 MG TABLET PO SCH ×2 (08:43→20:43)
[2020-03-18] MEDS: MULTIVITAMIN TABLET PO SCH (08:43)
[2020-03-18] MEDS: SACCHAROMYCES BOULARDII 250 MG CAPSULE PO SCH ×2 (08:43→16:41)
[2020-03-18] MEDS: SODIUM CHLORIDE FLUSH 0.9% 10 ML SYRINGE IVP SCH ×2 (08:44→16:41)
[2020-03-18] MEDS: cefTRIAXone 2 GM in SODIUM CHLORIDE 0.9% MINIBAG 100 ML IV SCH (11:21)
--- NOTE | 2020-03-18 15:02 | PROVIDER PROGRESS NOTE ---
Subjective - Prog Note Date Prog Note Date: 03/18/20 - Subjective Subjective: He did require Haldol overnight as he was intermittently confused and was agitated at times. He has not required Ativan and has been started on gabapentin. This morning he reports feeling less restless but he states continues to have tremors. He feels his balance has improved when he is walking. He knows he is going through alcohol withdrawal and he is agreeable to staying another night. He reports no chest pain or dyspnea. Current Medications - Current Medications Current Medications: Active Medications Chlordiazepoxide HCl (Librium) 25 mg PO Q12H [facility] Gabapentin (Neurontin) 300 mg PO TID [facility] Last Admin: 03/18/20 14:32 Dose: 300 mg Ibuprofen (Motrin) 400 mg PO Q4HR PRN PRN Reason: Pain 1 to 4 Metoprolol Tartrate (Lopressor) 25 mg PO BID [facility] Last Admin: 03/18/20 08:43 Dose: 25 mg Nicotine (Nicoderm) 1 patch TOP DAILY [facility] Last Admin: 03/18/20 08:43 Dose: 1 patch Ondansetron HCl (Zofran Odt) 4 mg TL Q6HR PRN PRN Reason: Nausea / Vomiting Oxycodone HCl (Roxicodone) 5 mg PO Q4HR PRN PRN Reason: Pain 5 to 7 Pantoprazole Sodium (Protonix) 40 mg PO QDAC [facility] Last Admin: 03/18/20 05:27 Dose: 40 mg Multivit/Folic Acid/Iron (Trinatal Rx 1) 1 tab PO DAILYWM [facility] Prochlorperazine Edisylate (Compazine Inj) 10 mg IVP Q6HR PRN PRN Reason: Nausea / Vomiting Saccharomyces Boulardii (Florastor) 500 mg PO BIDWM [facility] Last Admin: 03/18/20 08:43 Dose: 500 mg Sodium Chloride (Normal Saline Flush 0.9%) 10 ml IVP PRN PRN PRN Reason: NEEDED PER PROVIDER ORDERS Last Admin: 03/17/20 23:45 Dose: 10 ml Sodium Chloride (Normal Saline Flush 0.9%) 10 ml IVP 0100,0900,1700 [facility] Last Admin: 03/18/20 08:44 Dose: 10 ml Thiamine HCl (Vitamin B-1) 100 mg PO DAILY [facility] Last Admin: 03/18/20 08:43 Dose: 100 mg No Known Home Medications 03/14/20 Objective - Vital Signs/Intake & Output Reviewed Vital Signs: Yes Vital Signs: Vital Signs x48h Temp Pulse Resp BP BP Pulse Ox 03/18/20 13:00 36.6 C 86 18 125/86 H 95 03/18/20 08:43 129/91 H 03/18/20 08:16 36.5 C 100 18 129/91 H 94 Intake & Output: Intake & Output 03/15/20 03/16/20 03/17/20 03/18/20 23:59 23:59 23:59 23:59 Intake Total 3250.000 2937.2 1200 670 Output Total 1100 Balance 3250.000 1837.2 1200 670 - Objective General Appearance: positive: No acute distress, Alert Eyes Bilateral: positive: Normal inspection, Conjunctivae nml ENT: positive: ENT inspection nml Neck: positive: Nml inspection Respiratory: positive: No respiratory distress. negative: Wheezes, Rales Cardiovascular: positive: Extrasystoles. negative: Tachycardia, Bradycardia, Systolic murmur Abdomen: positive: Non-tender, No distention. negative: Tenderness Skin: positive: Warm, Dry. negative: Diaphoresis Extremities: positive: Full ROM, No pedal edema Neurologic/Psychiatric: positive: Other (He is now alert, oriented to self, location, year and month. He is still tremulous in the upper extremities but he is less restless.) - Lab Results Fish Bones: 03/17/20 05:55 03/17/20 05:55 Sepsis Event Note (H) - Evaluation Current Stage of Sepsis: Ruled out Assessment/Plan - Problem List (1) Alcohol withdrawal Impression: This has significantly improved and his CIWA is <10. He is still quite tremulous but is less restless and is now oriented to self and location. I am concerned about him going home today given he did require Haldol overnight and was disoriented at times. We will continue him on Librium but decrease the frequency to twice daily. We will discontinue the Ativan and continue gabapentin. He will most likely be stable for discharge tomorrow and he feels like he would benefit from another day in the hospital. (2) Community acquired pneumonia Impression: This was present on admission. Chest x-ray is concerning for left lower lobe infiltrate. He completed antibiotic therapy with azithromycin and ceftriaxone. He will need a repeat chest x-ray on outpatient basis and infiltrate is still present, he would benefit from a CT of the chest to rule out an underlying mass. Qualifiers: Laterality: left Lung location: lower lobe of lung Qualified Code(s): J18.9 - Pneumonia, unspecified organism (3) Alcohol abuse Impression: He is improving alcohol withdrawal standpoint. We will continue thiamine and folate. Social work has been consulted and have discussed options regarding alcohol cessation. Discussed once again the importance of alcohol cessation with the patient especially given that he has now gone through withdrawal. He states that he is motivated to quit. (4) PVCs (premature ventricular contractions) Impression: He was in bigeminy and trigeminy yesterday and given he had occasional symptoms, we will start him on 25 mg of metoprolol twice daily. Will obtain echocardiogram today. TSH was slightly elevated but T4 was within normal limits. (5) Tobacco abuse Impression: We will continue with a nicotine patch.
[2020-03-18] MEDS ORDERED: chlordiazePOXIDE 25 MG CAPSULE PO SCH (22:00)
[2020-03-19] MEDS: SODIUM CHLORIDE FLUSH 0.9% 10 ML SYRINGE IVP SCH ×2 (00:23→08:14)
[2020-03-19] MEDS: GABAPENTIN 300 MG CAPSULE PO SCH (06:13)
[2020-03-19] MEDS: PANTOPRAZOLE 40 MG TABLET PO SCH (06:13)
[2020-03-19] MEDS ORDERED: PRENATAL VITAMIN TABLET PO SCH (08:00)
[2020-03-19] MEDS: THIAMINE 100 MG TABLET PO SCH (08:11)
[2020-03-19] MEDS: METOPROLOL TARTRATE 25 MG TABLET PO SCH ×2 (08:11→09:25)
[2020-03-19] MEDS: NICOTINE 14 MG PATCH TOP SCH (08:11)
[2020-03-19] MEDS: SACCHAROMYCES BOULARDII 250 MG CAPSULE PO SCH (08:11)
[2020-03-19 08:20] LABS: BASOPHILS % (AUTO) 0.6 %; EOSINOPHILS % (AUTO) 2.3 %; HGB - HEMOGLOBIN 15.6 g/dL (14.0-18.0); LYMPHOCYTES % (AUTO) 21.3 %; MEAN CORPUSCULAR HEMOGLOBIN 32.8 pg (27.0-31.0); MEAN CORPUSCULAR HGB CONC 33.8 g/dL (32.0-36.0); MEAN CORPUSCULAR VOLUME 97.1 fL (80.0-94.0); MEAN PLATELET VOLUME 10.5 fL (7.4-11.4); PLT - PLATELET COUNT 197 10^3/uL (130-450); RED BLOOD COUNT 4.75 10^6/uL (4.70-6.10); RED CELL DISTRIBUTION WIDTH 14.1 % (12.0-15.0)
[2020-03-19 08:41] LABS: ABNORMAL LYMPHS % (MANUAL) 0 %; BAND NEUTROPHILS % (MANUAL) 0 %
[2020-03-19] MEDS ORDERED: DOCUSATE SODIUM 250 MG CAPSULE PO SCH (09:00)
[2020-03-19] MEDS ORDERED: chlordiazePOXIDE 25 MG CAPSULE PO SCH (09:00)
[2020-03-19] MEDS ORDERED: polyethylene glycoL 3350 17 GM PACKET PO SCH (09:00)
[2020-03-19 09:01] LABS: ALBUMIN 4.2 g/dL (3.2-5.5); ALBUMIN/GLOBULIN RATIO 1.2 (1.0-2.2); CALCIUM 9.5 mg/dL (8.5-10.3); CREATININE 0.6 mg/dL (0.6-1.2); TOTAL PROTEIN 7.7 g/dL (6.7-8.2)
[2020-03-19 09:04] LABS: DIFFERENTIAL COMMENT MANUAL DIFFERENTIAL; EOSINOPHILS # (MANUAL) 0.5 10^3/uL (0-0.7); LYMPHOCYTES # (MANUAL) 1.7 10^3/uL (1.5-3.5); LYMPHOCYTES % (MANUAL) 21 %; MONOCYTES # (MANUAL) 1.3 10^3/uL (0.0-1.0); PLATELET ESTIMATE, MANUAL NORMAL (130-450,000) (NORMAL); PLATELET MORPHOLOGY NORMAL APPEARANCE (NORMAL); RBC MORPHOLOGY (MULTIPLE) NORMAL APPEARANCE (NORMAL)
--- NOTE | 2020-03-19 10:36 | Discharge Plan ---
Discharge Plan Problem Reviewed?: Yes Disposition: Home, Self Care Condition: Stable Prescriptions: chlordiazePOXIDE [Librium] 25 mg PO BID PRN #20 capsule PRN Reason: Anxiety Vitamin [Trinatal Rx 1] 1 tab PO DAILYWM #15 tablet Thiamine [Vitamin B-1] 100 mg PO DAILY #15 tablet Diet: Regular Activity Restrictions: Activity as Tolerated Shower Restrictions: No (fall precaution) Instruction Topics: Alcoholism, Alcoholism Impact, Pneumonia Health Concerns: alcoholism and pneumonia Plan of Treatment: I discussed with you about quit alcohol and deal with alcohol withdrawal. I am glad you are willing to quit of alcoholism. Librium, and vitamin B1 help you deal with alcohol withdrawal. You finished antibiotics treatment for your pneumonia. advise you to have followup CXR in one to two weeks Care Goals: stabilization and improvement of your medical conditions Assessment: discussed with you the care plan, you understood and agreed Additional Instructions or Follow Up instructions: You may followup your PCP in one week to two weeks, health care social worker will help you setup PCP. Should your symptoms return or worsen, you may present ER or call 911 for help. No Smoking: If you smoke, Please STOP! Call for help.
--- NOTE | 2020-03-19 10:46 | DISCHARGE SUMMARY ---
Discharge Summary Admit Date: 03/14/20 Discharge Date: 03/19/20 Discharging Provider: Cezar Coon Condition at Discharge: Stable Discharge Disposition: 01 Home, Self Care Discharge Facility Name: home - DIAGNOSES Admission Diagnoses: (1) Pneumonia involving left lung (2) PVCs (premature ventricular contractions) (3) Alcohol abuse (4) Generalized anxiety disorder (5) Tobacco abuse Discharge Diagnoses with Status of Each Condition: (1) Alcohol withdrawal resolved. pt has no more alcohol withdrawal. pt walk in the nurse station. pt has no distress or anxiety. pt is prescribed Librium, and vitamin B1 (2) Community acquired pneumonia stable/resolved. pt was stopped antibiotics in hospital. pt has no cough, wheezing, chill or fever. pt has normal WBC. pt has 98% sats or room air now. advise pt followup PCP to have followup CXR. (3) Alcohol abuse pt was consulted for quit of alcohol. pt state he will quit alcohol. Librium is prescribed to help pt. (4) PVCs (premature ventricular contractions) stable/chronic. pt refused metoprolol in hospital. Patient also refused to be prescribed metoprolol, D/C go home (5) Tobacco abuse Advised the patient quit for smoke, patient understand - HPI History of Present Illness: refer Patient is a 54-year-old male with no known past medical history with the exception of self-admitted alcoholism and anxiety who presents to the emergency room for evaluation of predominantly weakness also associated with shortness of breath progressively worsened x1 week. 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 He denies any known sick contacts, in particular no known contacts to anyone diagnosed with novel coronavirus infection. He denies any documented fever but admits to a couple of episodes of mild subjective fever over the last 1 week. Minimal but noticeable shortness of breath and some coughing have also been present. In the emergency room he was evaluated and found to have a left-sided consolidation consistent with pneumonia in addition to left-sided pleural effusion. In route to the hospital by EMS the patient was also noted to have mu ltiple episodes of ectopy with a couple of brief runs of ventricular tachycardia, at about 3-4 beats. Patient has not been hypoxic and has a normal white blood cell count, but because of the patient's history of alcoholism with PVCs and paroxysmal ventricular tachycardia along with a diagnosis of pneumonia with a pleural effusion, it was thought best to seek hospital observation rather than discharge home. He was given a single dose of Rocephin and azithromycin for community- acquired pneumonia with the addition of Flagyl to cover for any possible aspiration. - HOSPITAL COURSE Hospital Course: Patient was admitted for weakness and short of breathing for over 1 week, patient was found to have pneumonia, also patient was found to have elevated alcohol,Patient report he has alcohol issue for years,Patient was treated with antibiotics for his pneumonia, patient developed alcohol withdrawal in the hospital patient was treated and follow [facility] protocol. patient was given pending bag.After the treated, patient alcohol withdrawal was resolved, patient pneumonia also resolved.Patient had 98% sats on room air in the discharge, detailed hospital course is an below (1) Alcohol withdrawal resolved. pt has no more alcohol withdrawal. pt walk in the nurse station. pt has no distress or anxiety. pt is prescribed Librium, and vitamin B1 (2) Community acquired pneumonia stable/resolved. pt was stopped antibiotics in hospital. pt has no cough, wheezing, chill or fever. pt has normal WBC. pt has 98% sats or room air now. advise pt followup PCP to have followup CXR. (3) Alcohol abuse pt was consulted for quit of alcohol. pt state he will quit alcohol. Librium is prescribed to help pt. (4) PVCs (premature ventricular contractions) stable/chronic. pt refused metoprolol in hospital. Patient also refused to be prescribed metoprolol, D/C go home (5) Tobacco abuse Advised the patient quit for smoke, patient understand - ALLERGIES Allergies/Adverse Reactions: Allergies Allergy/AdvReac Type Severity Reaction Status Date / Time No Known Drug Allergies Allergy Verified 03/14/20 21:21 - MEDICATIONS Home Medications: Ambulatory Orders Medication Instructions Recorded Confirmed Vitamin [Trinatal Rx 1] 1 tab PO DAILYWM #15 tablet 03/19/20 Thiamine [Vitamin B-1] 100 mg PO DAILY #15 tablet 03/19/20 chlordiazePOXIDE [Librium] 25 mg PO BID PRN #20 capsule 03/19/20 - PHYSICAL EXAM AT DISCHARGE General Appearance: positive: No acute distress, Alert. negative: Lethargic Eyes Bilateral: positive: Normal inspection, PERRL, No lid inflammation ENT: positive: ENT inspection nml, Pharynx nml, No signs of dehydration. negative: Purulent nasal drainage Neck: positive: Nml inspection, Thyroid nml, No JVD, Trachea midline. negative: Thyromegaly, Stiff neck, Tracheal deviation Respiratory: positive: Chest non-tender, No respiratory distress Cardiovascular: positive: Regular rate & rhythm, No murmur, No gallop. negative: Irregularly irregular, Tachycardia, Bradycardia, Systolic murmur, Diastolic murmur Peripheral Pulses: positive: 2+ Abdomen: positive: Non-tender, No organomegaly, Nml bowel sounds, No distention. negative: Tenderness, Guarding, Rebound Back: positive: Nml inspection. negative: CVA tenderness (R), CVA tenderness (L) Skin: positive: Color nml, No rash, Warm, Dry. negative: Cyanosis, Diaphoresis, Pallor Extremities: positive: Non-tender, Full ROM, Nml appearance. negative: Calf tenderness, Wei's sign/cords Neurologic/Psychiatric: positive: Oriented x3, Motor nml, Sensation nml. negative: Weakness, Sensory loss, Facial droop, Slurred/abnml speech - LABS Result Diagrams: 03/19/20 08:06 03/19/20 08:06 - SEPSIS Current Stage of Sepsis: Ruled out - FOLLOW UP Follow Up: I discussed with you about quit alcohol and deal with alcohol withdrawal. I am glad you are willing to quit of alcoholism. Librium, and vitamin B1 help you deal with alcohol withdrawal. You finished antibiotics treatment for your pneumonia. advise you to have followup CXR in one to two weeks. You may followup your PCP in one week to two weeks, mental health social worker will help you setup PCP. Should your symptoms return or worsen, you may present ER or call 911 for help. - TIME SPENT Time Spent in Discharge (Minutes): 30
[2020-03-19 10:58] VITALS: BP 137/79
[2020-03-19] MEDS ORDERED: GABAPENTIN 100 MG CAPSULE PO SCH (14:00)
== END 2020-03-19 11:20 | disposition home or self-care (01) | DRG 194 ==
LOC: EDUNIT# → ED 21:08 → MS2 22:07 → OBSVTOIN 03-18 15:57
PROVIDERS: ADMIT Family Medicine Sports Medicine; ATTEND Nurse Practitioner Gerontology
DX: J18.9 Pneumonia, unspecified organism (principal); F10.239 Alcohol dependence with withdrawal, unspecified; I47.2 Ventricular tachycardia; I49.3 Ventricular premature depolarization; F41.9 Anxiety disorder, unspecified; F17.210 Nicotine dependence, cigarettes, uncomplicated; Z20.828 Contact with and (suspected) exposure to other viral communicable diseases; Z85.47 Personal history of malignant neoplasm of testis
CPT/HCPCS: 36415; 71045; 80048; 80053; 80076; 80320; 83605; 83690; 83735; 83880; 84100; 84439; 84443; 84484; 85025; 85027; 87040; 87635; 93005; 93306; 96365; 96366; 96367; 96368; 96375; 96376; 99284; 99285; A9270; G0378; J2060; J3411; 81599

== ENCOUNTER 2020-05-15 10:33 | Inpatient (IN) | payer SELFPAY ==
[2020-05-15] MEDS ORDERED: FOLIC ACID INJ 1 MG, THIAMINE INJ 100 MG, MAGNESIUM SULFATE 2 GM, MULTIVITAMIN 10 ML in... IV STA ×5 (11:24)
[2020-05-15] MEDS ORDERED: LORazepam 2 MG/ML VIAL IVP STA (11:24)
--- NOTE | 2020-05-15 11:26 | ED Physician Documentation ---
PD HPI URI - Stated complaint Stated Complaint: SOA - Chief complaint Chief Complaint: Resp - History obtained from History obtained from: Patient, Family - History of Present Illness Timing - onset: How many days ago (10) Timing duration: Days (10) Timing details: Gradual onset, Still present Associated symptoms: Nasal congestion, Rhinorrhea, Dry cough, Dyspnea Contributing factors: Sick contact (works at [employer]) Improves by: Rest Worsened by: Activity, Breathing, Position Similar symptoms before: Diagnosis (pneumonia) Recently seen: Admitted - Additional information Additional information: 54-year-old alcoholic male was admitted in the hospital in March of this year for left lower lobe pneumonia. He was detoxed on alcohol and discharged with a taper of Librium. He was able to get off of the alcohol he was able to resolve his symptoms of pneumonia and he is gone back to work at the [employer]. He had a COVID test then and had a COVID test 5 days after discharge from the hospital. 10 days ago he began to develop cough and congestion again and he is developed some shortness of breath. He has not had fever with this. He has started drinking a little more than 3 weeks ago drinks about a pint of whiskey a day. The patient acknowledges significant depression and a need for treatment. He has a plan to go stay with his sister on the [place] to get help. He did indicate that he is feeling suicidal but without a plan. Review of Systems Constitutional: denies: Fever Eyes: denies: Decreased vision Ears: denies: Ear pain Nose: denies: Congestion Throat: denies: Oral lesions / sores, Sore throat Cardiac: denies: Chest pain / pressure, Palpitations Respiratory: reports: Dyspnea, Cough GI: denies: Nausea, Vomiting : denies: Dysuria Skin: denies: Rash Musculoskeletal: denies: Neck pain, Back pain Neurologic: denies: Generalized weakness, Focal weakness, Numbness Psychiatric: reports: Depressed, Suicidal, Anxiety, Insomnia PD PAST MEDICAL HISTORY - Past Medical History Cardiovascular: Other Respiratory: None Neuro: None Endocrine/Autoimmune: None GI: None : Other Psych: Anxiety Musculoskeletal: None - Past Surgical History Past Surgical History: Yes - Present Medications Home Medications: Ambulatory Orders Medication Instructions Recorded Confirmed Vitamin [Trinatal Rx 1] 1 tab PO DAILYWM #15 tablet 03/19/20 Thiamine [Vitamin B-1] 100 mg PO DAILY #15 tablet 03/19/20 chlordiazePOXIDE [Librium] 25 mg PO BID PRN #20 capsule 03/19/20 - Allergies Allergies/Adverse Reactions: Allergies Allergy/AdvReac Type Severity Reaction Status Date / Time No Known Drug Allergies Allergy Verified 05/15/20 10:44 - Social History Does the pt smoke?: Yes Smoking Status: Current every day smoker Does the pt drink ETOH?: Yes ETOH Use: Liquor, Other Does the pt have substance abuse?: Yes - Immunizations Immunizations are current?: Yes - POLST Patient has POLST: No POLST Status: Full Code PD ED PE NORMAL - Vitals Vital signs reviewed: Yes (normal ) - General General: Alert and oriented X 3, No acute distress, Well developed/nourished - HEENT HEENT: Atraumatic, PERRL, EOMI, Ears normal, Other (dry mucous membranes ) - Neck Neck: Supple, no meningeal sign, No bony TTP - Cardiac Cardiac: RRR, No murmur - Respiratory Respiratory: No respiratory distress, Clear bilaterally - Abdomen Abdomen: Normal bowel sounds, Soft, Non tender, Non distended, No organomegaly - Back Back: No CVA TTP, No spinal TTP - Derm Derm: Normal color, Warm and dry, No rash - Extremities Extremities: No deformity, No tenderness to palpate, Normal ROM s pain, No edema, No calf tenderness / cord - Neuro Neuro: Alert and oriented X 3, 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, No motor deficit, No sensory deficit, Normal speech Eye Opening: Spontaneous Motor: Obeys Commands Verbal: Oriented GCS Score: 15 - Psych Psych: Other (mood is anxious and the affect is flat ) Results - Vitals Vitals: Vital Signs - 24 hr 05/15/20 05/15/20 05/15/20 10:35 10:48 12:44 Temperature 36 C L Heart Rate 92 78 Respiratory 16 15 Rate Blood Pressure 164/83 H 139/65 H O2 Saturation 95 99 Oxygen O2 Source Room air - Labs Labs: Laboratory Tests 05/15/20 05/15/20 05/15/20 11:28 11:48 11:48 WBC 6.6 RBC 4.78 Hgb 16.4 Hct 46.6 MCV 97.5 H MCH 34.3 H MCHC 35.2 RDW 14.0 Plt Count 193 MPV 10.2 Neut # (Auto) 3.1 Lymph # (Auto) 2.0 [place] # (Auto) 1.4 H Eos # (Auto) 0.0 Baso # (Auto) 0.1 Absolute Nucleated RBC 0.00 Nucleated RBC % 0.0 PT 10.6 INR 0.9 Sodium Potassium Chloride Carbon Dioxide Anion Gap BUN Creatinine Estimated GFR (MDRD) Glucose Lactic Acid Calcium Total Bilirubin AST ALT Alkaline Phosphatase Total Protein Albumin Globulin Albumin/Globulin Ratio Lipase Urine Color YELLOW Urine Clarity CLEAR Urine pH 7.5 Ur Specific [place] 1.010 Urine Protein 100 H Urine Glucose (UA) NEGATIVE Urine Ketones NEGATIVE Urine Occult Blood SMALL H Urine Nitrite NEGATIVE Urine Bilirubin NEGATIVE Urine Urobilinogen 0.2 (NORMAL) Ur Leukocyte Esterase NEGATIVE Urine RBC 0-5 Urine WBC 0-3 Ur Squamous Epith Cells RARE Squamous Urine Bacteria Rare Ur Microscopic Review INDICATED Urine Culture Comments NOT INDICATED Salicylates Urine Opiates Screen NEGATIVE Ur Oxycodone Screen NEGATIVE Urine Methadone Screen NEGATIVE Ur Propoxyphene Screen NEGATIVE Acetaminophen Ur Barbiturates Screen NEGATIVE Ur Tricyclics Screen NEGATIVE Ur Phencyclidine Scrn NEGATIVE Ur Amphetamine Screen NEGATIVE U Methamphetamines Scrn NEGATIVE U Benzodiazepines Scrn POSITIVE H Urine Cocaine Screen NEGATIVE U Cannabinoids Screen POSITIVE H Ethyl Alcohol 05/15/20 05/15/20 11:48 11:48 WBC RBC Hgb Hct MCV MCH MCHC RDW Plt Count MPV Neut # (Auto) Lymph # (Auto) [place] # (Auto) Eos # (Auto) Baso # (Auto) Absolute Nucleated RBC Nucleated RBC % PT INR Sodium 138 Potassium 3.5 Chloride 97 L Carbon Dioxide 22 Anion Gap 19.0 H BUN 12 Creatinine 0.5 L Estimated GFR (MDRD) 172 Glucose 104 H Lactic Acid 3.7 H* Calcium 8.9 Total Bilirubin 0.9 AST 141 H ALT 106 H Alkaline Phosphatase 54 Total Protein 7.9 Albumin 4.7 Globulin 3.2 Albumin/Globulin Ratio 1.5 Lipase 70 H Urine Color Urine Clarity Urine pH Ur Specific [place] Urine Protein Urine Glucose (UA) Urine Ketones Urine Occult Blood Urine Nitrite Urine Bilirubin Urine Urobilinogen Ur Leukocyte Esterase Urine RBC Urine WBC Ur Squamous Epith Cells Urine Bacteria Ur Microscopic Review Urine Culture Comments Salicylates < 6.0 Urine Opiates Screen Ur Oxycodone Screen Urine Methadone Screen Ur Propoxyphene Screen Acetaminophen < 10 L Ur Barbiturates Screen Ur Tricyclics Screen Ur Phencyclidine Scrn Ur Amphetamine Screen U Methamphetamines Scrn U Benzodiazepines Scrn Urine Cocaine Screen U Cannabinoids Screen Ethyl Alcohol 276.1 - Rads (name of study) cxr Radiology: Prelim report reviewed (Impression: Probable persistent left lower lobe pneumonia with small parapneumonic effusion. Recommend CT scan of the chest with contrast when clinically feasible to exclude underlying mass), EMP read indepedently, See rad report CT chest Radiology: Prelim report reviewed (Impression: Findings in the left lung and p leural spaces described above. This is thought to represent round atelectasis as there is a small left pleural effusion and pleural thickening with pleural calcification. Correlate for any history of prior hemothorax/pyothorax, or potentially asbestos exp), EMP read indepedently, See rad report (Alternatively, this could represent a focus of pneumonia with a parapneumonic effusion. There is no evidence of an underlying mass lesion. Neoplasm could not be strictly excluded, however. Follow-up to radiographic resolution will be needed to definitely exclude neoplasm.) PD MEDICAL DECISION MAKING - ED course Complexity details: reviewed old records, reviewed results, re-evaluated patient, considered differential, d/w patient, d/w family ED course: 54-year-old alcoholic male has developed cough increasing and increasing shortness of breath over the past 10 days. He is depressed and feeling suici artem. He is intoxicated and has recently had started re-drinking about [address] scan is concerning for a left lower lobe pneumonia his lactate is elevated his white cell count is normal and his he is afebrile. Here in the emergency department he is administered a banana bag and given Ativan. He is not at this point cleared for psychiatric evaluation. I have asked our hospitalist Dr. García to hospitalize this patient for medical clearance for evaluation for treatment of depression and alcoholism and she will admit him to observation with intention to begin treatment and ensure he will improve before going into treatment. The patient endorses this plan and is relieved to get help. He works at the [employer] and he believes he has been careful about his exposure to covid. Another covid test is obtained today. Departure - Departure Disposition: ED Place in Observation Clinical Impression: Alcohol abuse, Depression with suicidal ideation Pneumonia involving left lung Qualifiers: Pneumonia type: due to unspecified organism Lung location: lower lobe of lung Qualified Code(s): J18.9 - Pneumonia, unspecified organism
[2020-05-15 11:32] LABS: MUDS CUTOFF CONCENTRATIONS CUTOFF CONC BELOW:
[2020-05-15 11:41] LABS: BILIRUBIN,URINE NEGATIVE (NEGATIVE); GLUCOSE, URINE (UA) NEGATIVE (NEGATIVE); KETONES,URINE (UA) NEGATIVE (NEGATIVE); LEUKOCYTE ESTERASE, URINE NEGATIVE (NEGATIVE); NITRITE,URINE NEGATIVE (NEGATIVE); OCCULT BLOOD,URINE SMALL (NEGATIVE); PH,URINE 7.5 PH (5.0-7.5); PROTEIN,URINE 100 mg/dL (NEGATIVE); UROBILINOGEN,URINE 0.2 (NORMAL) E.U./dL (NORMAL)
--- NOTE | 2020-05-15 11:47 | XRAY Report ---
PROCEDURE: Chest 2 View X-Ray INDICATIONS: cough soa TECHNIQUE: 2 view(s) of the chest. COMPARISON: 03/16/2020 and 03/14/2020. FINDINGS: Surgical changes and devices: None. Lungs and pleura: Small left-sided pleural effusion. Focal opacity in left lung base is decreased in size without resolution. Mediastinum: Mediastinal contours are normal. Heart size is normal. Bones and chest wall: No suspicious bony abnormalities. Soft tissues appear unremarkable. IMPRESSION: Probable persistent left lower lobe pneumonia with small parapneumonic effusion. Recommen d CT scan of the chest with contrast when clinically feasible to exclude underlying mass. Reviewed by: Jackelyn Jean MD, PhD on 05/15/2020 11:46 AM PDT Approved by: Jackelyn Jean MD, PhD on 05/15/2020 11:46 AM PDT Station ID: [id number]
[2020-05-15 11:49] LABS: CLARITY,URINE CLEAR (CLEAR)
[2020-05-15 11:52] LABS: COCAINE SCREEN URINE NEGATIVE (NEGATIVE)
[2020-05-15 11:53] LABS: AMPHETAMINE SCREEN,URINE NEGATIVE (NEGATIVE); BENZODIAZEPINES SCREEN, URINE POSITIVE (NEGATIVE); METHADONE SCREEN, URINE NEGATIVE (NEGATIVE); METHAMPHETAMINES SCREEN, URINE NEGATIVE (NEGATIVE); OPIATE SCREEN, URINE NEGATIVE (NEGATIVE); OXYCODONE SCREEN, URINE NEGATIVE (NEGATIVE); PROPOXYPHENE SCREEN, URINE NEGATIVE (NEGATIVE); TRICYCLIC ANTIDEPRESSANT,URINE NEGATIVE (NEGATIVE)
[2020-05-15 11:56] LABS: BACTERIA,URINE Rare /HPF (None Seen); RBC,URINE 0-5 /HPF (0-5); SQUAMOUS EPITHELIAL CELL,UR RARE Squamous (<= Few)
[2020-05-15 12:02] LABS: BASOPHILS # (AUTO) 0.1 10^3/uL (0.0-0.1); BASOPHILS % (AUTO) 1.5 %; EOSINOPHILS % (AUTO) 0.2 %; HGB - HEMOGLOBIN 16.4 g/dL (14.0-18.0); LYMPHOCYTES % (AUTO) 30.4 %; MEAN CORPUSCULAR HEMOGLOBIN 34.3 pg (27.0-31.0); MEAN CORPUSCULAR HGB CONC 35.2 g/dL (32.0-36.0); MEAN CORPUSCULAR VOLUME 97.5 fL (80.0-94.0); MEAN PLATELET VOLUME 10.2 fL (7.4-11.4); MONOCYTES # (AUTO) 1.4 10^3/uL (0.0-1.0); NEUTROPHILS # (AUTO) 3.1 10^3/uL (1.5-6.6); NEUTROPHILS % (AUTO) 46.6 %; PLT - PLATELET COUNT 193 10^3/uL (130-450); RED BLOOD COUNT 4.78 10^6/uL (4.70-6.10); WHITE BLOOD COUNT 6.6 x10^3/uL (4.8-10.8)
[2020-05-15 12:08] LABS: INR 0.9 (0.8-1.2); PT - PROTHROMBIN TIME 10.6 secs (9.9-12.6)
[2020-05-15 12:18] LABS: ACETAMINOPHEN < 10 ug/mL (10-30); ALBUMIN 4.7 g/dL (3.2-5.5); ALBUMIN/GLOBULIN RATIO 1.5 (1.0-2.2); ALKALINE PHOSPHATASE 54 IU/L (42-121); ALT ALANINE AMINOTRANSFERASE 106 IU/L (10-60); AST ASPARTATE AMINOTRANSFERASE 141 IU/L (10-42); BILIRUBIN,TOTAL 0.9 mg/dL (0.2-1.0); BUN - BLOOD UREA NITROGEN 12 mg/dL (6-20); CALCIUM 8.9 mg/dL (8.5-10.3); CARBON DIOXIDE - CO2 22 mmol/L (21-32); CHLORIDE 97 mmol/L (101-111); CREATININE 0.5 mg/dL (0.6-1.2); GLUCOSE 104 mg/dL (70-100); LIPASE 70 U/L (22-51); SALICYLATE < 6.0 mg/dL; SODIUM 138 mmol/L (135-145); TOTAL PROTEIN 7.9 g/dL (6.7-8.2)
[2020-05-15] MEDS ORDERED: IOVERSOL 320 100 ML VIAL IVP ONE ×2 (12:32→13:20)
--- NOTE | 2020-05-15 13:34 | CT Report ---
PROCEDURE: CHEST W INDICATIONS: Evaluation of chronic left lower lobe abnormality. CONTRAST: IV CONTRAST: Optiray 320 ml: 90 PO CONTRAST: *NO PO CONTRAST TECHNIQUE: After the administration of intravenous contrast, 5 mm thick sections acquired from the pulmonary api dulce to the posterior costophrenic angles. 7 mm thick coronal MIP reformats were acquired. For radia tion dose reduction, the following was used: automated exposure control, adjustment of mA and/or kV according to patient size. COMPARISON: None. FINDINGS: Image quality: Excellent. Lungs and pleura: These images demonstrate a small left pleural effusion with adjacent thickening of the visceral and parietal pleura, as well as a few punctate calcifications within the parietal pleura in this location. There is atelectasis and consolidation in the adjacent left lower lobe with air br onchograms. There is no displacement of the traversing vessels. No underlying enhancing mass identifi ed. No evidence of an endobronchial mass leading to the area of atelectasis. The remaining lungs are clear. The right pleural space is unremarkable. Mediastinum: Normal heart size without pericardial effusion. Coronary atherosclerosis. No threshold e nlarged mediastinal or hilar lymph node. Bones and chest wall: No threshold enlarged axillary lymph node. Thoracic osseous structures intact w ithout suspicious lesion. Uniform thyroid gland. Abdomen: Severe hepatic steatosis. Numerous surgical clips in the left retroperitoneum. IMPRESSION: Findings in the left lung and pleural spaces described above. This is thought to represent round atel ectasis as there is a small left pleural effusion and pleural thickening with pleural calcification. Correlate for any history of prior hemothorax/pyothorax, or potentially asbestos exposure. Alternativ brenda, this could represent a focus of pneumonia with a parapneumonic effusion. There is no evidence of an underlying mass lesion. Neoplasm could not be strictly excluded, however. Follow-up to radiograph ic resolution will be needed to definitively exclude neoplasm. Reviewed by: David Lamas MD on 05/15/2020 1:33 PM PDT Approved by: David Lamas MD on 05/15/2020 1:33 PM PDT Station ID: [id number]
[2020-05-15] MEDS ORDERED: cefTRIAXone 1 GM in SODIUM CHLORIDE 0.9% MINIBAG 100 ML IV STA (14:21)
[2020-05-15] MEDS: AZITHROMYCIN INJ 500 MG in SODIUM CHLORIDE 0.9% 250 ML IV STA ×2 (14:39→15:13)
[2020-05-15] MEDS ORDERED: ONDANSETRON 4 MG/2 ML VIAL IVP PRN (15:01)
--- NOTE | 2020-05-15 15:26 | PHARMACY PROGRESS NOTE ---
- Best Possible Medication History Admit Date and Time: 05/15/20 1458 Processed by: Pharmacy Medication History completed: Yes Patient Interview: Completed Secondary Source(s): Pharmacy records, Insurance records (PATIENT INTERVIEWED BY ASSISTANT ANALYST) As the person ultimately responsible for medication therapy, providers are able to order a medication from an existing home medication list in [facility] via the "Reconcile Routine" prior to Confirmation of that medication by systems support officer. Such practice is discouraged except when the physician, in their clinical judgment, deems that a medical need exists for a medication without regard to previous use.
[2020-05-15] MEDS: LORazepam 2 MG/ML VIAL IVP PRN ×4 (16:08→20:58)
[2020-05-15] MEDS: PANTOPRAZOLE 40 MG TABLET PO SCH (16:10)
--- NOTE | 2020-05-15 16:41 | HISTORY & PHYSICAL EXAMINATION ---
DATE OF SERVICE: 05/15/2020 Physician: Mary García MD HISTORY OF PRESENT ILLNESS: This is a 54-year-old white male who has a history of alcohol abuse. He was admitted to this hospital 58 days ago for left lower lobe pneumonia, which had complications of a pleural effusion. He was abusing alcohol and went through alcohol withdrawal during that admission and was discharged with a taper of Librium. He was able to decrease his alcohol intake as an outpatient and went back to work at the [employer] He thinks he was careful regarding COVID isolation during that time that he worked there. He had a COVID test during the last hospitalization and 5 days after discharge. Ten days ago, he started to develop a cough with sputum production and then shortness of breath. He denied having a fever. He also started drinking alcohol excessively about 3 weeks ago, drinking a pint of whiskey a day at least. The patient presented to the Emergency Room today for his cough and shortness of breath. He did admit to being depressed and having suicidal ideations, but did not have any plan. His Emergency Room evaluation shows that he has a left lower lobe consolidation with a parapneumonic effusion. He also has an elevated lactic acid level of 3.7. This patient's pneumonia severity index according to MCG criteria is class IV, giving him a moderate or high risk, and he is being admitted to inpatient status for management of a recurrent or undertreated (recent) pneumonia or healthcare-associated pneumonia with complications of associated pleural effusion in addition to having elevated liver function tests and altered mental status that is persistent (given his continued suicidal ideations). He will be admitted to the ICU. PAST MEDICAL HISTORY: Alcohol abuse, recent pneumonia 2 months ago. MEDICATIONS: vitamin daily and Thiamine daily are ordered, whether he was compliant is unknown. ALLERGIES: NONE. FAMILY HISTORY: No inherited diseases. SOCIAL HISTORY: The patient drinks alcohol daily, as reported above. He smokes cigarettes, a pack a day. He uses marijuana. The patient works at the [employer] REVIEW OF SYSTEMS: This was obtained from chart review, since the patient is lethargic and a poor historian, after receiving Ativan IV in the ER. The pertinent positives are as above, the rest are negative. PHYSICAL EXAMINATION VITAL SIGNS: Blood pressure 160/80, heart rate 90 in sinus rhythm, afebrile at 36 centigrade, room air saturation 95-99%. He appears older than his age. HEENT: Reveals dry oral mucosa. NECK: No JVD. CHEST: Poor air entry. No wheezes. HEART: No murmur. ABDOMEN: Soft. EXTREMITIES: No clubbing, cyanosis or edema. NEUROLOGIC: Somnolent after receiving IV Ativan, nonfocal. LABORATORY DATA: Sodium 138, potassium 3.5, anion gap 19. Lactic acid 3.7. BUN 12, creatinine 0.5, lipase 70. White blood count 6.6, hemoglobin 16.4, platelet count 193. His AST is 141 with ALT 106. Bilirubin normal at 0.9. INR normal at 0.9. Urinalysis had protein and occult blood present, but otherwise not remarkable. His urine toxicology screen shows positive benzodiazepines and positive cannabis. His serum alcohol level is 276. CHEST X-RAY: Left lower lobe infiltrate. CT CHEST: Shows left lower lobe consolidation with parapneumonic effusion and neoplasm cannot be ruled out, but there is no underlying mass lesion noted. No EKG was done. IMPRESSION/DIAGNOSES 1. Healthcare-associated pneumonia (this patient may have an undertreated pneumonia or may have a new health-care acquired pneumonia, since he was hospitalized less than 90 days ago since his last one). 2. Pleural effusion. 3. Suicidal ideation. 4. Alcohol abuse. 5. Dehydration. 6. Elevated lipase (this could be a phase reactant, but with his alcohol history, this could also be pancreatitis). 7. Tobacco use PLAN: Admit the patient to Inpatient status because of his class IV PSI risk category of moderate or high risk, as per mcg criteria. Begin one-to-one observation because of his suicidal ideations. When he is cleared from a medical standpoint, plan mental health evaluation, possible transfer to inpatient psychiatry or inpatient alcohol rehabilitation. Begin Librium scheduled dosing to prevent alcohol withdrawal. Order CIWA protocol, with prn iv Ativan use, in case there is alcohol withdrawal. Continue with his thiamine and daily vitamin. Begin IV hydration because of the dehydration. Begin IV antibiotics using Pip-Tazo because of a possible undertreated recent pneumonia. Obtain sputum culture. Begin Mucinex for pulmonary toilet. Obtain a nasal COVID swab. Begin respiratory isolation until a COVID result is negative. Follow his electrolytes and liver test daily. Follow his white count daily. Follow his lactic acid until it has improved to normal range. Follow his lipase daily and if there is continued elevation, then proceed to a CT of the abdomen to evaluate the pancreas. His diet will be as tolerated unless there are complaints of abdominal pain or other GI symptoms. Nicotine patch topically daily ordered. CODE STATUS: FULL CODE. DEEP VENOUS THROMBOSIS PROPHYLAXIS: SCDs. ATTESTATION: The patient is expected to be discharged or transferred to another facility within 96 hours: Yes. TD: 05/15/2020 16:04 ARNIE
[2020-05-15] MEDS: D5NS W/20 MEQ KCL 1,000 ML IV SCH (16:45)
[2020-05-15] MEDS: PIPERACILLIN/TAZOBACTAM 3.375 GM in SODIUM CHLORIDE 0.9% MINIBAG 100 ML IV SCH ×2 (16:45→23:03)
[2020-05-15] MEDS: NICOTINE 14 MG PATCH TOP SCH (17:00)
[2020-05-15] MEDS: SODIUM CHLORIDE FLUSH 0.9% 10 ML SYRINGE IVP SCH ×2 (17:05→23:03)
[2020-05-15] MEDS: chlordiazePOXIDE 25 MG CAPSULE PO SCH ×2 (17:40→23:01)
[2020-05-15] MEDS: SODIUM CHLORIDE FLUSH 0.9% 10 ML SYRINGE IVP PRN (19:55)
[2020-05-15] MEDS: guaiFENesin 600 MG TABLET PO SCH (20:51)
[2020-05-15] MEDS ORDERED: LORazepam 100MG/100ML D5W 100 ML IV SCH (22:00)
[2020-05-16] MEDS: LORazepam 100MG/100ML D5W 100 ML IV SCH (00:18)
[2020-05-16] MEDS: D5NS W/20 MEQ KCL 1,000 ML IV SCH ×2 (01:26→10:40)
[2020-05-16 01:33] LABS: PHOSPHORUS 2.6 mg/dL (2.5-4.6)
[2020-05-16 05:30] LABS: BASOPHILS % (AUTO) 0.9 %; EOSINOPHILS # (AUTO) 0.1 10^3/uL (0.0-0.7); EOSINOPHILS % (AUTO) 2.2 %; HGB - HEMOGLOBIN 13.7 g/dL (14.0-18.0); LYMPHOCYTES # (AUTO) 1.3 10^3/uL (1.5-3.5); MEAN CORPUSCULAR HEMOGLOBIN 33.7 pg (27.0-31.0); MEAN CORPUSCULAR HGB CONC 33.8 g/dL (32.0-36.0); MEAN CORPUSCULAR VOLUME 99.5 fL (80.0-94.0); MONOCYTES # (AUTO) 0.8 10^3/uL (0.0-1.0); MONOCYTES % (AUTO) 17.8 %; NEUTROPHILS # (AUTO) 2.3 10^3/uL (1.5-6.6); NEUTROPHILS % (AUTO) 49.7 %; PLT - PLATELET COUNT 137 10^3/uL (130-450); RED BLOOD COUNT 4.07 10^6/uL (4.70-6.10); RED CELL DISTRIBUTION WIDTH 14.3 % (12.0-15.0); WHITE BLOOD COUNT 4.6 x10^3/uL (4.8-10.8)
[2020-05-16 05:32] LABS: INR 0.9 (0.8-1.2); PT - PROTHROMBIN TIME 10.8 secs (9.9-12.6)
[2020-05-16 05:45] LABS: ALBUMIN 3.6 g/dL (3.2-5.5); ALBUMIN/GLOBULIN RATIO 1.4 (1.0-2.2); BILIRUBIN,TOTAL 1.2 mg/dL (0.2-1.0); CALCIUM 7.6 mg/dL (8.5-10.3); CREATININE 0.6 mg/dL (0.6-1.2); PHOSPHORUS 2.5 mg/dL (2.5-4.6); TOTAL PROTEIN 6.1 g/dL (6.7-8.2)
[2020-05-16] MEDS: PANTOPRAZOLE 40 MG TABLET PO SCH ×2 (06:06→15:51)
[2020-05-16] MEDS: chlordiazePOXIDE 25 MG CAPSULE PO SCH ×4 (06:06→22:39)
[2020-05-16] MEDS: PIPERACILLIN/TAZOBACTAM 3.375 GM in SODIUM CHLORIDE 0.9% MINIBAG 100 ML IV SCH ×3 (07:50→19:15)
[2020-05-16 07:51] LABS: VBG PH 7.465 (7.31-7.41)
[2020-05-16] MEDS: guaiFENesin 600 MG TABLET PO SCH ×2 (07:56→20:56)
[2020-05-16] MEDS: PRENATAL VITAMIN TABLET PO SCH (07:56)
[2020-05-16] MEDS: NICOTINE 14 MG PATCH TOP SCH (07:56)
[2020-05-16] MEDS: SODIUM CHLORIDE FLUSH 0.9% 10 ML SYRINGE IVP SCH ×2 (07:57→16:50)
[2020-05-16] MEDS ORDERED: NICOTINE 14 MG PATCH TOP PRN (08:36)
[2020-05-16] MEDS: CALCIUM CITRATE 250 MG TABLET PO SCH ×4 (08:49→20:57)
[2020-05-16] MEDS: THIAMINE 100 MG TABLET PO SCH (08:49)
--- NOTE | 2020-05-16 10:57 | PROVIDER PROGRESS NOTE ---
Assessment/Plan - Problem List (1) HCAP (healthcare-associated pneumonia) Assessment/Plan: This patient may have an undertreated pneumonia from the last hospitalization or a new pneumonia but may have been colonized with hospital organism since he was here less than 90 days ago. His PSI was class IV, and he required Inpatient status. WBC was normal but has dropped today, which could indicate overwhelming infection. Continue with empiric IV antibiotics using Zosyn. Continue supplemental oxygen. Mucinex ordered for pulmonary toilet. No fever and he is taking his diet well, therefore will decrease the IV fluid rate. COVID result is negative, will decrease his infection isolation order. (2) Pleural effusion Assessment/Plan: We will plan to recheck the chest x-ray in 1 or 2 more days. If it was a parapneumonic effusion there should be some improvement with the IV antibiotics. (3) Suicidal ideation Assessment/Plan: He denies any plan today. Yesterday he stated he was depressed to the point of suicide, to the ER doctor yesterday. Mental health evaluation is planned, when he is medically cleared, possibly tomorrow. Continue one-to-one observation. (4) Alcohol withdrawal Assessment/Plan: Overnight he became more tremulous. The CIME protocol required him to get IV Ativan pushes. Despite this he continued to have tremors and IV Ativan drip was started overnight. Remain in the ICU, continue IV Ativan for 24 hours. He is also on scheduled Librium. Social work consult for mental health/alcohol rehab is planned in the next day or so, when he is medically cleared. (5) Alcohol abuse Assessment/Plan: As per history. LFTs were elevated, being followed daily, and the AST and ALT actually increased today. Continue with oral thiamine and vitamin daily. Shower prn. (6) Elevated lipase Assessment/Plan: Patient increased from 70-80 but he has no abdominal pain or other GI symptoms. This may still be a phase reactant that was going up. Follow lipase daily. Consider CT of the abdomen to evaluate the pancreas. (7) Tobacco use Assessment/Plan: Patient has tried to decrease cigarette use on his own. He refused a nicotine patch because it is adding to his tremors. We will make the nicotine patch not scheduled but as needed daily. - Current Meds Current Meds: Current Medications Generic Name Dose Route Start Last Admin Trade Name Freq PRN Reason Stop Dose Admin Calcium Citrate 500 mg 05/16/20 09:00 05/16/20 08:49 PO 05/16/20 21:01 500 mg QID BOB Administration Protocol Chlordiazepoxide HCl 25 mg 05/15/20 18:00 05/16/20 06:06 Librium PO 25 mg Q6HR BOB Administration Guaifenesin 600 mg 05/15/20 21:00 05/16/20 07:56 Mucinex PO 600 mg BID BOB Administration Piperacillin Sod/Tazobactam 100 mls @ 25 mls/hr 05/15/20 16:00 05/16/20 07:50 Sod 3.375 gm/ Sodium Chloride IV 25 mls/hr Q8H BOB Administration Lorazepam 100 mls @ 5 mls/hr 05/15/20 23:00 05/16/20 10:00 Ativan IV 2 mg/hr .Q20H BOB 2 mls/hr Titration Protocol 5 MG/HR Potassium Chloride/Dextrose/Sod Cl 1,000 mls @ 40 mls/hr 05/16/20 10:25 05/16/20 10:40 IV 40 mls/hr .Q25H BOB Administration Lorazepam 1 mg 05/15/20 15:08 05/15/20 20:58 Ativan Inj (Vial) IVP 1 mg Q30M PRN Administration CIWA >8 Protocol Pantoprazole Sodium 40 mg 05/15/20 16:00 05/16/20 06:06 Protonix PO 40 mg BIDAC BOB Administration Multivit/Folic Acid/Iron 1 tab 05/16/20 08:00 05/16/20 07:56 Trinatal Rx 1 PO 1 tab DAILYWM BOB Administration Sodium Chloride 10 ml 05/15/20 17:00 05/16/20 07:57 Normal Saline Flush 0.9% IVP 10 ml 0100,0900,1700 BOB Administration Sodium Chloride 10 ml 05/15/20 15:01 05/15/20 19:55 Normal Saline Flush 0.9% IVP 10 ml PRN PRN Administration NEEDED PER PROVIDER ORDERS Thiamine HCl 100 mg 05/16/20 09:00 05/16/20 08:49 Vitamin B-1 PO 100 mg DAILY BOB Administration - Lab Result Fish Bone Diagrams: 05/16/20 04:30 05/16/20 04:30 - Additional Planning My Orders: My Active Orders 05/15/20 15:01 Activity Orders [RC] Q2HR Daily Weight [RC] 0600 IO [RC] Q1HR Initiate Bowel Care Protocol [RC] QSHIFT Initiate ICU Electrolyte Prot. [RC] .protocol Initiate Line Care Protocol [RC] .protocol Initiate Personal Care Protoco [RC] .protocol Turn and Reposition [RC] PRN Vital Signs [RC] Q4HR Ondansetron Inj [Zofran Inj] 4 mg IVP Q6HR PRN Sodium Chloride Flush 0.9% [Normal Saline Flush 0.9%] 10 ml IVP PRN PRN Code Status [OTHERS] Routine Condition of Patient [OTHERS] Routine DVT Prophylaxis [OTHERS] Routine 05/15/20 15:02 Blood Glucose POC [RC] Routine Oral Care - Nursing [RC] Routine Oxygen Therapy [RC] Routine SCDs [RC] QSHIFT Telemetry- [RC] Q4HR 05/15/20 15:04 Initiate Line Care Protocol [RC] QSHIFT 05/15/20 15:05 1:1 Observation [RC] ONCE 05/15/20 15:08 CIWA - AR Score Card [RC] Routine Routine Neuro Check [RC] Routine Routine LORazepam INJ [Ativan Inj (Vial)] 1 mg IVP Q30M PRN 05/15/20 16:00 Pantoprazole [Protonix] 40 mg PO BIDAC Piperacillin/Tazobactam [Zosyn] 3.375 gm Sodium Chloride 0.9% Minibag [Normal Saline 0.9% Minibag] 100 ml IV Q8H 05/15/20 Dinner Regular Diet [DIET] 05/15/20 17:00 Sodium Chloride Flush 0.9% [Normal Saline Flush 0.9%] 10 ml IVP 0100,0900,1700 05/15/20 18:00 chlordiazePOXIDE [Librium] 25 mg PO Q6HR 05/15/20 18:50 CUL, RESPIRATORY [RM] Urgent 05/15/20 21:00 guaiFENesin [Mucinex] 600 mg PO BID 05/16/20 08:00 Vitamin [Trinatal Rx 1] 1 tab PO DAILYWM 05/16/20 08:36 Nicotine 14 mg Patch [Nicoderm] 1 patch TOP DAILY PRN 05/16/20 09:00 Calcium Citrate 500 mg PO QID Thiamine [Vitamin B-1] 100 mg PO DAILY 05/16/20 10:23 Infection Precautions - Discon [RC] .ONCE 05/16/20 10:25 D5ns W/20 Meq KCl 1,000 ml IV 40 mls/hr 05/16/20 10:52 Shower [RC] PRN 05/16/20 Lunch Regular Diet [DIET] 05/17/20 05:00 CBC - COMP BLD CT W/AUTO DIFF [HEME] DAILYLAB COMPREHENSIVE METABOLIC PANEL [CHEM] DAILYLAB 05/18/20 05:00 CBC - COMP BLD CT W/AUTO DIFF [HEME] DAILYLAB COMPREHENSIVE METABOLIC PANEL [CHEM] DAILYLAB Subjective - Subjective Patient Reports: Feeling Better, Resting Comfortably Nursing Reports: Other (Patient was tremulous overnight and IV Ativan drip need to be started, after trying several Ativan pushes in a row. Patient also thinks his tremor started from the nicotine patch.) Objective Vital Signs: Vital Signs - 24 hr 05/15/20 05/15/20 05/15/20 12:44 14:00 14:51 Temperature 36.8 C Heart Rate 78 84 87 Heart Rate [ Monitoring electrodes] Respiratory 15 14 21 Rate Blood Pressure 139/65 H 142/92 H 146/50 H Blood Pressure [Right Brachial artery] O2 Saturation 99 97 95 05/15/20 05/15/20 05/15/20 16:00 17:00 18:45 Temperature 37 C 37.1 C 36.7 C Heart Rate Heart Rate [ 87 100 93 Monitoring electrodes] Respiratory 18 14 18 Rate Blood Pressure Blood Pressure 127/87 H 127/87 H 135/92 H [Right Brachial artery] O2 Saturation 96 96 96 05/15/20 05/15/20 05/16/20 20:54 22:44 00:08 Temperature 36.8 C Heart Rate Heart Rate [ 97 95 84 Monitoring electrodes] Respiratory 20 19 19 Rate Blood Pressure Blood Pressure 144/88 H 114/65 118/94 H [Right Brachial artery] O2 Saturation 96 96 05/16/20 05/16/20 05/16/20 00:42 01:00 02:04 Temperature 36.8 C Heart Rate Heart Rate [ 85 87 Monitoring electrodes] Respiratory 18 13 Rate Blood Pressure Blood Pressure 133/88 H 120/83 H [Right Brachial artery] O2 Saturation 97 05/16/20 05/16/20 05/16/20 03:00 04:00 05:00 Temperature Heart Rate Heart Rate [ 92 88 Monitoring electrodes] Respiratory 18 20 18 Rate Blood Pressure Blood Pressure 110/84 H 147/94 H 136/88 H [Right Brachial artery] O2 Saturation 95 96 98 05/16/20 05/16/20 05/16/20 05:27 06:06 07:00 Temperature 36.8 C Heart Rate 88 Heart Rate [ 95 95 Monitoring electrodes] Respiratory 18 21 18 Rate Blood Pressure Blood Pressure 157/93 H 157/93 H [Right Brachial artery] O2 Saturation 98 98 97 05/16/20 05/16/20 09:00 10:10 Temperature 36.5 C Heart Rate Heart Rate [ 90 87 Monitoring electrodes] Respiratory 20 21 Rate Blood Pressure Blood Pressure 121/72 132/97 H [Right Brachial artery] O2 Saturation 98 Oxygen O2 Source Room air I&O (Last 24 Hrs): Intake and Output Totals x24h 05/14/20 05/15/20 05/16/20 23:59 23:59 23:59 Intake Total 3875.950 1940.067 Output Total 0 0 Balance 3875.950 1940.067 General: Alert, Oriented x3 HEENT: Mucous membr. moist/pink, Other (Poorly kempt, greasy hair and face.) Neck: Supple Neuro: Other (Hands are tremulous, no nystagmus, speech and alertness normal (despite being on Ativan drip).) Cardiovascular: Regular rate Respiratory: No respiratory distress Abdomen: Soft Extremities: No edema - Results Results: Laboratory Results WBC 4.6 x10^3/uL (4.8-10.8) L 05/16/20 04:30 RBC 4.07 10^6/uL (4.70-6.10) L 05/16/20 04:30 Hgb 13.7 g/dL (14.0-18.0) L 05/16/20 04:30 Hct 40.5 % (42.0-52.0) L 05/16/20 04:30 MCV 99.5 fL (80.0-94.0) H 05/16/20 04:30 MCH 33.7 pg (27.0-31.0) H 05/16/20 04:30 MCHC 33.8 g/dL (32.0-36.0) 05/16/20 04:30 RDW 14.3 % (12.0-15.0) 05/16/20 04:30 Plt Count 137 10^3/uL (130-450) 05/16/20 04:30 MPV 10.0 fL (7.4-11.4) 05/16/20 04:30 Neut # (Auto) 2.3 10^3/uL (1.5-6.6) 05/16/20 04:30 Lymph # (Auto) 1.3 10^3/uL (1.5-3.5) L 05/16/20 04:30 Haakon # (Auto) 0.8 10^3/uL (0.0-1.0) 05/16/20 04:30 Eos # (Auto) 0.1 10^3/uL (0.0-0.7) 05/16/20 04:30 Baso # (Auto) 0.0 10^3/uL (0.0-0.1) 05/16/20 04:30 Absolute Nucleated RBC 0.00 x10^3/uL 05/16/20 04:30 Nucleated RBC % 0.0 /100WBC 05/16/20 04:30 PT 10.8 secs (9.9-12.6) 05/16/20 04:30 INR 0.9 (0.8-1.2) 05/16/20 04:30 VBG pH 7.465 (7.31-7.41) H 05/16/20 07:46 Ionized Calcium 1.02 mmol/L (1.15-1.33) L 05/16/20 07:46 Sodium 136 mmol/L (135-145) 05/16/20 04:30 Potassium 3.7 mmol/L (3.5-5.0) 05/16/20 04:30 Chloride 103 mmol/L (101-111) 05/16/20 04:30 Carbon Dioxide 25 mmol/L (21-32) 05/16/20 04:30 Anion Gap 8.0 (6-13) 05/16/20 04:30 BUN 12 mg/dL (6-20) 05/16/20 04:30 Creatinine 0.6 mg/dL (0.6-1.2) 05/16/20 04:30 Estimated GFR (MDRD) 139 (>89) 05/16/20 04:30 Glucose 104 mg/dL (70-100) H 05/16/20 04:30 Lactic Acid 2.3 mmol/L (0.5-2.2) H 05/15/20 15:21 Calcium 7.6 mg/dL (8.5-10.3) L 05/16/20 04:30 Phosphorus 2.5 mg/dL (2.5-4.6) 05/16/20 04:30 Magnesium 2.0 mg/dL (1.7-2.8) 05/16/20 04:30 Total Bilirubin 1.2 mg/dL (0.2-1.0) H 05/16/20 04:30 AST 232 IU/L (10-42) H 05/16/20 04:30 ALT 114 IU/L (10-60) H 05/16/20 04:30 Alkaline Phosphatase 50 IU/L (42-121) 05/16/20 04:30 Total Protein 6.1 g/dL (6.7-8.2) L 05/16/20 04:30 Albumin 3.6 g/dL (3.2-5.5) 05/16/20 04:30 Globulin 2.5 g/dL (2.1-4.2) 05/16/20 04:30 Albumin/Globulin Ratio 1.4 (1.0-2.2) 05/16/20 04:30 Lipase 80 U/L (22-51) H 05/16/20 04:30 Urine Color YELLOW 05/15/20 11:28 Urine Clarity CLEAR (CLEAR) 05/15/20 11:28 Urine pH 7.5 PH (5.0-7.5) 05/15/20 11:28 Ur Specific [place] 1.010 (1.002-1.030) 05/15/20 11:28 Urine Protein 100 mg/dL (NEGATIVE) H 05/15/20 11:28 Urine Glucose (UA) NEGATIVE mg/dL (NEGATIVE) 05/15/20 11:28 Urine Ketones NEGATIVE mg/dL (NEGATIVE) 05/15/20 11:28 Urine Occult Blood SMALL (NEGATIVE) H 05/15/20 11:28 Urine Nitrite NEGATIVE (NEGATIVE) 05/15/20 11:28 Urine Bilirubin NEGATIVE (NEGATIVE) 05/15/20 11:28 Urine Urobilinogen 0.2 (NORMAL) E.U./dL (NORMAL) 05/15/20 11:28 Ur Leukocyte Esterase NEGATIVE (NEGATIVE) 05/15/20 11:28 Urine RBC 0-5 /HPF (0-5) 05/15/20 11:28 Urine WBC 0-3 /HPF (0-3) 05/15/20 11:28 Ur Squamous Epith Cells RARE Squamous (<= Few) 05/15/20 11:28 Urine Bacteria Rare /HPF (None Seen) 05/15/20 11:28 Ur Microscopic Review INDICATED 05/15/20 11:28 Urine Culture Comments NOT INDICATED 05/15/20 11:28 Nasal Screen MRSA (PCR) NEGATIVE (NEGATIVE) 05/15/20 16:10 Salicylates < 6.0 mg/dL 05/15/20 11:48 Urine Opiates Screen NEGATIVE (NEGATIVE) 05/15/20 11:28 Ur Oxycodone Screen NEGATIVE (NEGATIVE) 05/15/20 11:28 Urine Methadone Screen NEGATIVE (NEGATIVE) 05/15/20 11:28 Ur Propoxyphene Screen NEGATIVE (NEGATIVE) 05/15/20 11:28 Acetaminophen < 10 ug/mL (10-30) L 05/15/20 11:48 Ur Barbiturates Screen NEGATIVE (NEGATIVE) 05/15/20 11:28 Ur Tricyclics Screen NEGATIVE (NEGATIVE) 05/15/20 11:28 Ur Phencyclidine Scrn NEGATIVE (NEGATIVE) 05/15/20 11:28 Ur Amphetamine Screen NEGATIVE (NEGATIVE) 05/15/20 11:28 U Methamphetamines Scrn NEGATIVE (NEGATIVE) 05/15/20 11:28 U Benzodiazepines Scrn POSITIVE (NEGATIVE) H 05/15/20 11:28 Urine Cocaine Screen NEGATIVE (NEGATIVE) 05/15/20 11:28 U Cannabinoids Screen POSITIVE (NEGATIVE) H 05/15/20 11:28 Ethyl Alcohol 276.1 mg/dL 05/15/20 11:48 Coronavirus (PCR) NEGATIVE 05/15/20 16:10
[2020-05-17] MEDS: SODIUM CHLORIDE FLUSH 0.9% 10 ML SYRINGE IVP SCH ×3 (04:02→17:08)
[2020-05-17] MEDS: PIPERACILLIN/TAZOBACTAM 3.375 GM in SODIUM CHLORIDE 0.9% MINIBAG 100 ML IV SCH ×3 (04:05→19:50)
[2020-05-17 05:07] LABS: BASOPHILS % (AUTO) 0.6 %; EOSINOPHILS # (AUTO) 0.2 10^3/uL (0.0-0.7); EOSINOPHILS % (AUTO) 3.4 %; HGB - HEMOGLOBIN 13.4 g/dL (14.0-18.0); LYMPHOCYTES # (AUTO) 1.2 10^3/uL (1.5-3.5); LYMPHOCYTES % (AUTO) 24.5 %; MEAN CORPUSCULAR HEMOGLOBIN 34.5 pg (27.0-31.0); MEAN CORPUSCULAR HGB CONC 34.4 g/dL (32.0-36.0); MEAN CORPUSCULAR VOLUME 100.5 fL (80.0-94.0); MONOCYTES # (AUTO) 0.9 10^3/uL (0.0-1.0); MONOCYTES % (AUTO) 19.4 %; NEUTROPHILS # (AUTO) 2.5 10^3/uL (1.5-6.6); NEUTROPHILS % (AUTO) 51.9 %; PLT - PLATELET COUNT 133 10^3/uL (130-450); RED BLOOD COUNT 3.88 10^6/uL (4.70-6.10); WHITE BLOOD COUNT 4.7 x10^3/uL (4.8-10.8)
[2020-05-17 05:19] LABS: ALBUMIN 3.7 g/dL (3.2-5.5); ALBUMIN/GLOBULIN RATIO 1.4 (1.0-2.2); BILIRUBIN,TOTAL 0.6 mg/dL (0.2-1.0); CALCIUM 8.6 mg/dL (8.5-10.3); CREATININE 0.5 mg/dL (0.6-1.2); TOTAL PROTEIN 6.4 g/dL (6.7-8.2)
[2020-05-17] MEDS: PANTOPRAZOLE 40 MG TABLET PO SCH ×2 (06:05→16:21)
[2020-05-17] MEDS: chlordiazePOXIDE 25 MG CAPSULE PO SCH ×4 (06:05→23:06)
[2020-05-17 06:30] LABS: MAGNESIUM 2.1 mg/dL (1.7-2.8); PHOSPHORUS 2.4 mg/dL (2.5-4.6)
[2020-05-17] MEDS: LORazepam 100MG/100ML D5W 100 ML IV SCH ×3 (08:40→22:14)
[2020-05-17] MEDS: LORazepam 2 MG/ML VIAL IVP PRN (08:45)
[2020-05-17] MEDS: NEUTRA-PHOS 250 MG TABLET PO SCH ×2 (08:48→11:08)
[2020-05-17] MEDS: PRENATAL VITAMIN TABLET PO SCH (08:49)
[2020-05-17] MEDS: THIAMINE 100 MG TABLET PO SCH (08:50)
[2020-05-17] MEDS: guaiFENesin 600 MG TABLET PO SCH ×2 (08:50→19:52)
[2020-05-17] MEDS: SODIUM CHLORIDE FLUSH 0.9% 10 ML SYRINGE IVP PRN (08:51)
[2020-05-17] MEDS: FLUCONAZOLE 100 MG TABLET PO SCH (11:39)
[2020-05-17] MEDS: chlordiazePOXIDE 5 MG CAPSULE PO SCH ×3 (11:41→23:06)
[2020-05-17] MEDS: D5NS W/20 MEQ KCL 1,000 ML IV SCH (11:57)
--- NOTE | 2020-05-17 15:26 | PROVIDER PROGRESS NOTE ---
Assessment/Plan - Problem List (1) Alcohol withdrawal Assessment/Plan: Very early this morning he started to be more fidgety, agitated, climbing out of bed, wanting to ambulate even despite being on IV Ativan drip. Later in the day he had visual hallucinations that the nurse told me about. His IV Ativan drip could not be weaned to off in fact he needed to be increased today for high CIWA score. During the past admissions it is required 3 days to get through withdrawal. Continue supportive care, continue IV Ativan drip and remain in ICU. Will increase the Librium dose. (2) HCAP (healthcare-associated pneumonia) Assessment/Plan: Pt status is clinically improved with no more short of breath at rest or with walking, less cough. Blood cultures are negative to date at 48 hours. Sputum culture was "saliva". Continue with empiric antibiotics, supplemental O2. (3) Pleural effusion Assessment/Plan: Will recheck CXR tomorrow, after 2 days of iv antibiotic tx. (4) Suicidal ideation Assessment/Plan: He remains on 1:1 observation Since he expressed suicidal ideation in the ER. Today he is somnolent however on Ativan drip which needed to be increased due to worsening withdrawal. He is not ready for mental health evaluation therefore. (5) Alcohol abuse Assessment/Plan: There has been a decrease in his LFTs since the increase that occurred yesterday. Continue with p.o. thiamine and daily vitamin replacement. The patient told social work that he is "depressed because he cannot stop alcohol abuse". He will need further mental health management. (6) Elevated lipase Assessment/Plan: Lipase of 70 at admission was felt to be a phase reactant but then it went to 80, today is 74. Patient has no abdominal complaints, is tolerating solid foods. He did not have abdominal imaging at admission. We will continue to follow this lipase level. He may have an improving alcoholic pancreatitis currently. (7) Tobacco use Assessment/Plan: He is declining the nicotine patch because it is adding to tremulousness. - Current Meds Current Meds: Current Medications Generic Name Dose Route Start Last Admin Trade Name Freq PRN Reason Stop Dose Admin Chlordiazepoxide HCl 25 mg 05/17/20 12:00 05/17/20 11:40 Librium PO 25 mg Q6HR BOB Administration Chlordiazepoxide HCl 15 mg 05/17/20 12:00 05/17/20 11:41 Librium PO 15 mg Q6HR BOB Administration Fluconazole 100 mg 05/17/20 12:00 05/17/20 11:39 Diflucan PO 05/22/20 00:01 100 mg DAILY BOB Administration Guaifenesin 600 mg 05/15/20 21:00 05/17/20 08:50 Mucinex PO 600 mg BID BOB Administration Lorazepam 100 mls @ 5 mls/hr 05/15/20 23:00 05/17/20 13:22 Ativan IV 8 mg/hr .Q20H BOB 8 mls/hr Titration Protocol 5 MG/HR Potassium Chloride/Dextrose/Sod Cl 1,000 mls @ 40 mls/hr 05/16/20 10:25 05/17/20 11:57 IV 40 mls/hr .Q25H BOB Administration Piperacillin Sod/Tazobactam 100 mls @ 25 mls/hr 05/16/20 20:00 05/17/20 11:55 Sod 3.375 gm/ Sodium Chloride IV 25 mls/hr Q8H BOB Administration Lorazepam 1 mg 05/15/20 15:08 05/17/20 08:45 Ativan Inj (Vial) IVP 1 mg Q30M PRN Administration CIWA >8 Protocol Pantoprazole Sodium 40 mg 05/15/20 16:00 05/17/20 06:05 Protonix PO 40 mg BIDAC BOB Administration Multivit/Folic Acid/Iron 1 tab 05/16/20 08:00 05/17/20 08:49 Trinatal Rx 1 PO 1 tab DAILYWM BOB Administration Sodium Chloride 10 ml 05/15/20 17:00 05/17/20 10:11 Normal Saline Flush 0.9% IVP Not Given 0100,0900,1700 BOB Sodium Chloride 10 ml 05/15/20 15:01 05/17/20 08:51 Normal Saline Flush 0.9% IVP 10 ml PRN PRN Administration NEEDED PER PROVIDER ORDERS Thiamine HCl 100 mg 05/16/20 09:00 05/17/20 08:50 Vitamin B-1 PO 100 mg DAILY BOB Administration - Lab Result Fish Bone Diagrams: 05/17/20 04:15 05/17/20 04:15 - Additional Planning My Orders: My Active Orders 05/16/20 20:00 Piperacillin/Tazobactam [Zosyn] 3.375 gm Sodium Chloride 0.9% Minibag [Normal Saline 0.9% Minibag] 100 ml IV Q8H 05/17/20 05:00 LIPASE [CHEM] Routine 05/17/20 12:00 Fluconazole [Diflucan] 100 mg PO DAILY chlordiazePOXIDE [Librium] 15 mg PO Q6HR chlordiazePOXIDE [Librium] 25 mg PO Q6HR 05/18/20 05:00 CBC - COMP BLD CT W/AUTO DIFF [HEME] DAILYLAB COMPREHENSIVE METABOLIC PANEL [CHEM] DAILYLAB MAGNESIUM [CHEM] DAILYLAB PHOSPHORUS [CHEM] DAILYLAB Subjective - Subjective Patient Reports: Other (Hallucinations) Nursing Reports: Other (Pt agitated, wants to get OOB and ambulate, despite being on Ativan drip he ambulated in the hallway) Objective Vital Signs: Vital Signs - 24 hr 05/16/20 05/16/20 05/16/20 16:44 20:40 23:35 Temperature 36.6 C 36.6 C 36.6 C Heart Rate [ 83 86 74 Monitoring electrodes] Respiratory 20 19 21 Rate Blood Pressure 140/94 H 148/98 H 134/94 H [Right Brachial artery] O2 Saturation 98 98 98 05/17/20 05/17/20 05/17/20 03:59 08:00 12:45 Temperature 36.5 C 97.9 C H 37.3 C Heart Rate [ 66 78 90 Monitoring electrodes] Respiratory 21 15 20 Rate Blood Pressure 103/78 140/96 H 124/88 H [Right Brachial artery] O2 Saturation 97 97 97 Oxygen O2 Source Room air I&O (Last 24 Hrs): Intake and Output Totals x24h 05/15/20 05/16/20 05/17/20 23:59 23:59 23:59 Intake Total 3875.950 3838.233 1920.066 Output Total 0 0 2100 Balance 3875.950 3838.233 -179.934 General: Other (Currently sleeping) HEENT: Mucous membr. moist/pink Neuro: Other (Fidgety and hallucinating, per RN's report) Cardiovascular: Regular rate Respiratory: No respiratory distress Abdomen: Soft Extremities: No edema - Results Results: Laboratory Results WBC 4.7 x10^3/uL (4.8-10.8) L 05/17/20 04:15 RBC 3.88 10^6/uL (4.70-6.10) L 05/17/20 04:15 Hgb 13.4 g/dL (14.0-18.0) L 05/17/20 04:15 Hct 39.0 % (42.0-52.0) L 05/17/20 04:15 MCV 100.5 fL (80.0-94.0) H 05/17/20 04:15 MCH 34.5 pg (27.0-31.0) H 05/17/20 04:15 MCHC 34.4 g/dL (32.0-36.0) 05/17/20 04:15 RDW 14.0 % (12.0-15.0) 05/17/20 04:15 Plt Count 133 10^3/uL (130-450) 05/17/20 04:15 MPV 11.0 fL (7.4-11.4) 05/17/20 04:15 Neut # (Auto) 2.5 10^3/uL (1.5-6.6) 05/17/20 04:15 Lymph # (Auto) 1.2 10^3/uL (1.5-3.5) L 05/17/20 04:15 [place] # (Auto) 0.9 10^3/uL (0.0-1.0) 05/17/20 04:15 Eos # (Auto) 0.2 10^3/uL (0.0-0.7) 05/17/20 04:15 Baso # (Auto) 0.0 10^3/uL (0.0-0.1) 05/17/20 04:15 Absolute Nucleated RBC 0.00 x10^3/uL 05/17/20 04:15 Nucleated RBC % 0.0 /100WBC 05/17/20 04:15 PT 10.8 secs (9.9-12.6) 05/16/20 04:30 INR 0.9 (0.8-1.2) 05/16/20 04:30 VBG pH 7.465 (7.31-7.41) H 05/16/20 07:46 Ionized Calcium 1.02 mmol/L (1.15-1.33) L 05/16/20 07:46 Sodium 136 mmol/L (135-145) 05/17/20 04:15 Potassium 3.5 mmol/L (3.5-5.0) 05/17/20 04:15 Chloride 104 mmol/L (101-111) 05/17/20 04:15 Carbon Dioxide 24 mmol/L (21-32) 05/17/20 04:15 Anion Gap 8.0 (6-13) 05/17/20 04:15 BUN 7 mg/dL (6-20) 05/17/20 04:15 Creatinine 0.5 mg/dL (0.6-1.2) L 05/17/20 04:15 Estimated GFR (MDRD) 172 (>89) 05/17/20 04:15 Glucose 105 mg/dL (70-100) H 05/17/20 04:15 Lactic Acid 2.3 mmol/L (0.5-2.2) H 05/15/20 15:21 Calcium 8.6 mg/dL (8.5-10.3) 05/17/20 04:15 Phosphorus 2.4 mg/dL (2.5-4.6) L 05/17/20 04:15 Magnesium 2.1 mg/dL (1.7-2.8) 05/17/20 04:15 Total Bilirubin 0.6 mg/dL (0.2-1.0) 05/17/20 04:15 AST 138 IU/L (10-42) H 05/17/20 04:15 ALT 102 IU/L (10-60) H 05/17/20 04:15 Alkaline Phosphatase 52 IU/L (42-121) 05/17/20 04:15 Total Protein 6.4 g/dL (6.7-8.2) L 05/17/20 04:15 Albumin 3.7 g/dL (3.2-5.5) 05/17/20 04:15 Globulin 2.7 g/dL (2.1-4.2) 05/17/20 04:15 Albumin/Globulin Ratio 1.4 (1.0-2.2) 05/17/20 04:15 Lipase 74 U/L (22-51) H 05/17/20 06:18 Urine Color YELLOW 05/15/20 11:28 Urine Clarity CLEAR (CLEAR) 05/15/20 11:28 Urine pH 7.5 PH (5.0-7.5) 05/15/20 11:28 Ur Specific [place] 1.010 (1.002-1.030) 05/15/20 11:28 Urine Protein 100 mg/dL (NEGATIVE) H 05/15/20 11:28 Urine Glucose (UA) NEGATIVE mg/dL (NEGATIVE) 05/15/20 11:28 Urine Ketones NEGATIVE mg/dL (NEGATIVE) 05/15/20 11:28 Urine Occult Blood SMALL (NEGATIVE) H 05/15/20 11:28 Urine Nitrite NEGATIVE (NEGATIVE) 05/15/20 11:28 Urine Bilirubin NEGATIVE (NEGATIVE) 05/15/20 11:28 Urine Urobilinogen 0.2 (NORMAL) E.U./dL (NORMAL) 05/15/20 11:28 Ur Leukocyte Esterase NEGATIVE (NEGATIVE) 05/15/20 11:28 Urine RBC 0-5 /HPF (0-5) 05/15/20 11:28 Urine WBC 0-3 /HPF (0-3) 05/15/20 11:28 Ur Squamous Epith Cells RARE Squamous (<= Few) 05/15/20 11:28 Urine Bacteria Rare /HPF (None Seen) 05/15/20 11:28 Ur Microscopic Review INDICATED 05/15/20 11:28 Urine Culture Comments NOT INDICATED 05/15/20 11:28 Nasal Screen MRSA (PCR) NEGATIVE (NEGATIVE) 05/15/20 16:10 Salicylates < 6.0 mg/dL 05/15/20 11:48 Urine Opiates Screen NEGATIVE (NEGATIVE) 05/15/20 11:28 Ur Oxycodone Screen NEGATIVE (NEGATIVE) 05/15/20 11:28 Urine Methadone Screen NEGATIVE (NEGATIVE) 05/15/20 11:28 Ur Propoxyphene Screen NEGATIVE (NEGATIVE) 05/15/20 11:28 Acetaminophen < 10 ug/mL (10-30) L 05/15/20 11:48 Ur Barbiturates Screen NEGATIVE (NEGATIVE) 05/15/20 11:28 Ur Tricyclics Screen NEGATIVE (NEGATIVE) 05/15/20 11:28 Ur Phencyclidine Scrn NEGATIVE (NEGATIVE) 05/15/20 11:28 Ur Amphetamine Screen NEGATIVE (NEGATIVE) 05/15/20 11:28 U Methamphetamines Scrn NEGATIVE (NEGATIVE) 05/15/20 11:28 U Benzodiazepines Scrn POSITIVE (NEGATIVE) H 05/15/20 11:28 Urine Cocaine Screen NEGATIVE (NEGATIVE) 05/15/20 11:28 U Cannabinoids Screen POSITIVE (NEGATIVE) H 05/15/20 11:28 Ethyl Alcohol 276.1 mg/dL 05/15/20 11:48 Coronavirus (PCR) NEGATIVE 05/15/20 16:10
[2020-05-18] MEDS: SODIUM CHLORIDE FLUSH 0.9% 10 ML SYRINGE IVP SCH ×3 (02:12→17:00)
[2020-05-18] MEDS: PIPERACILLIN/TAZOBACTAM 3.375 GM in SODIUM CHLORIDE 0.9% MINIBAG 100 ML IV SCH ×3 (04:14→20:15)
[2020-05-18 05:36] LABS: BASOPHILS # (AUTO) 0.1 10^3/uL (0.0-0.1); BASOPHILS % (AUTO) 0.9 %; EOSINOPHILS # (AUTO) 0.2 10^3/uL (0.0-0.7); EOSINOPHILS % (AUTO) 3.3 %; HGB - HEMOGLOBIN 13.6 g/dL (14.0-18.0); LYMPHOCYTES # (AUTO) 1.6 10^3/uL (1.5-3.5); LYMPHOCYTES % (AUTO) 28.5 %; MEAN CORPUSCULAR HEMOGLOBIN 34.4 pg (27.0-31.0); MEAN CORPUSCULAR HGB CONC 33.6 g/dL (32.0-36.0); MEAN CORPUSCULAR VOLUME 102.5 fL (80.0-94.0); MEAN PLATELET VOLUME 11.3 fL (7.4-11.4); MONOCYTES % (AUTO) 17.2 %; NEUTROPHILS # (AUTO) 2.8 10^3/uL (1.5-6.6); NEUTROPHILS % (AUTO) 49.6 %; PLT - PLATELET COUNT 141 10^3/uL (130-450); RED BLOOD COUNT 3.95 10^6/uL (4.70-6.10); RED CELL DISTRIBUTION WIDTH 14.1 % (12.0-15.0); WHITE BLOOD COUNT 5.7 x10^3/uL (4.8-10.8)
[2020-05-18 05:45] LABS: ALBUMIN 3.8 g/dL (3.2-5.5); ALBUMIN/GLOBULIN RATIO 1.4 (1.0-2.2); BILIRUBIN,TOTAL 0.6 mg/dL (0.2-1.0); CALCIUM 8.9 mg/dL (8.5-10.3); CREATININE 0.5 mg/dL (0.6-1.2); PHOSPHORUS 4.1 mg/dL (2.5-4.6); TOTAL PROTEIN 6.5 g/dL (6.7-8.2)
[2020-05-18] MEDS: chlordiazePOXIDE 25 MG CAPSULE PO SCH ×4 (05:53→23:15)
[2020-05-18] MEDS: PANTOPRAZOLE 40 MG TABLET PO SCH ×2 (05:54→16:29)
[2020-05-18] MEDS ORDERED: IBUPROFEN 400 MG TABLET PO PRN (06:54)
[2020-05-18] MEDS: chlordiazePOXIDE 5 MG CAPSULE PO SCH (07:05)
[2020-05-18] MEDS: THIAMINE 100 MG TABLET PO SCH (08:00)
[2020-05-18] MEDS: guaiFENesin 600 MG TABLET PO SCH ×2 (08:00→20:18)
[2020-05-18] MEDS: FLUCONAZOLE 100 MG TABLET PO SCH (08:00)
[2020-05-18] MEDS: PRENATAL VITAMIN TABLET PO SCH (08:00)
[2020-05-18] MEDS: LORazepam 100MG/100ML D5W 100 ML IV SCH (08:50)
--- NOTE | 2020-05-18 12:00 | PROVIDER PROGRESS NOTE ---
Assessment/Plan - Problem List (1) Alcohol withdrawal Assessment/Plan: He required an increase of his Ativan drip all the way up to 9, per [facility] protocol for agitation and tremulousness. Will increase his p.o. scheduled Librium even further, from 40 mg every 6 hours to 50 mg every 6 hours. Will try to wean down the iv Ativan drip today. Remain in the ICU today. (2) HCAP (healthcare-associated pneumonia) Assessment/Plan: Clinically much better without dyspnea, tachypnea or supplemental oxygen needed Continue on his IV antibiotic. A total 7-day course of antibiotics is planned. (3) Pleural effusion Assessment/Plan: Will obtain a CXR to F/U if improving pneumonia and effusion, by CXR (4) Elevated lipase Assessment/Plan: Lipase remains elevated in the 70s to 80s. Will obtain CT abdomen to evaluate the pancreas. (5) Suicidal ideation Assessment/Plan: He is not medically cleared for mental health eval regarding depression and suicidal ideations, since he is still on IV Ativan for alcohol withdrawal. (6) Alcohol abuse Assessment/Plan: LFT's are improving. Continue daily vitamin and oral thiamine daily. He requested help for alcohol detox, voiced at the time of admission. Social work/mental health eval will also be done for this, when he is medically cleared.. (7) Tobacco use Assessment/Plan: He has not wanted his nicotine patch since it has added to his tremulousness. We will stop the nicotine patch order - Current Meds Current Meds: Current Medications Generic Name Dose Route Start Last Admin Trade Name Charlesq PRN Reason Stop Dose Admin Chlordiazepoxide HCl 50 mg 05/18/20 12:00 05/18/20 11:52 Librium PO 50 mg Q6HR BOB Administration Fluconazole 100 mg 05/17/20 12:00 05/18/20 08:00 Diflucan PO 05/22/20 00:01 100 mg DAILY BOB Administration Guaifenesin 600 mg 05/15/20 21:00 05/18/20 08:00 Mucinex PO 600 mg BID BOB Administration Lorazepam 100 mls @ 5 mls/hr 05/15/20 23:00 05/18/20 11:00 Ativan IV 7 mg/hr .Q20H BOB 7 mls/hr Titration Protocol 5 MG/HR Potassium Chloride/Dextrose/Sod Cl 1,000 mls @ 40 mls/hr 05/16/20 10:25 05/18/20 11:00 IV 40 mls/hr .Q25H BOB Infusion Piperacillin Sod/Tazobactam 100 mls @ 25 mls/hr 05/16/20 20:00 05/18/20 11:50 Sod 3.375 gm/ Sodium Chloride IV 25 mls/hr Q8H BOB Administration Lorazepam 1 mg 05/15/20 15:08 05/17/20 08:45 Ativan Inj (Vial) IVP 1 mg Q30M PRN Administration CIWA >8 Protocol Pantoprazole Sodium 40 mg 05/15/20 16:00 05/18/20 05:54 Protonix PO 40 mg BIDAC BOB Administration Multivit/Folic Acid/Iron 1 tab 05/16/20 08:00 05/18/20 08:00 Trinatal Rx 1 PO 1 tab DAILYWM BOB Administration Sodium Chloride 10 ml 05/15/20 17:00 05/18/20 08:00 Normal Saline Flush 0.9% IVP 10 ml 0100,0900,1700 BOB Administration Sodium Chloride 10 ml 05/15/20 15:01 05/17/20 08:51 Normal Saline Flush 0.9% IVP 10 ml PRN PRN Administration NEEDED PER PROVIDER ORDERS Thiamine HCl 100 mg 05/16/20 09:00 05/18/20 08:00 Vitamin B-1 PO 100 mg DAILY BOB Administration - Lab Result Fish Bone Diagrams: 05/18/20 04:40 05/18/20 04:40 - Additional Planning My Orders: My Active Orders 05/17/20 12:00 Fluconazole [Diflucan] 100 mg PO DAILY 05/18/20 12:00 chlordiazePOXIDE [Librium] 50 mg PO Q6HR 05/19/20 05:00 CBC - COMP BLD CT W/AUTO DIFF [HEME] DAILYLAB CMP [COMPREHENSIVE METABOLIC PANEL] [CHEM] DAILYLAB LIPASE [CHEM] DAILYLAB 05/20/20 05:00 CBC - COMP BLD CT W/AUTO DIFF [HEME] DAILYLAB CMP [COMPREHENSIVE METABOLIC PANEL] [CHEM] DAILYLAB LIPASE [CHEM] DAILYLAB 05/21/20 05:00 CBC - COMP BLD CT W/AUTO DIFF [HEME] DAILYLAB CMP [COMPREHENSIVE METABOLIC PANEL] [CHEM] DAILYLAB LIPASE [CHEM] DAILYLAB Subjective - Subjective Patient Reports: Feeling Better Nursing Reports: Other (He was still "fidgety" overnight, only had sleep for 3 hours despite being on oral Librium scheduled and IV Ativan drip.) Objective Vital Signs: Vital Signs - 24 hr 05/17/20 05/17/20 05/17/20 12:45 17:45 20:38 Temperature 37.3 C 36.4 C L 36.6 C Heart Rate [ 90 73 70 Monitoring electrodes] Respiratory 20 23 23 Rate Blood Pressure 136/98 H 120/92 H [Left Brachial artery] Blood Pressure 124/88 H [Right Brachial artery] O2 Saturation 97 98 98 05/17/20 05/18/20 05/18/20 23:04 03:54 08:00 Temperature 36.5 C 36.4 C L 98.4 C H Heart Rate [ 69 76 68 Monitoring electrodes] Respiratory 22 22 18 Rate Blood Pressure 125/82 H 130/86 H [Left Brachial artery] Blood Pressure 123/87 H [Right Brachial artery] O2 Saturation 97 96 98 Oxygen O2 Source Room air I&O (Last 24 Hrs): Intake and Output Totals x24h 05/16/20 05/17/20 05/18/20 23:59 23:59 23:59 Intake Total 3838.233 3188.065 1781.666 Output Total 0 3900 300 Balance 3838.233 -324.077 2425.666 General: Alert, No acute distress HEENT: Mucous membr. moist/pink, Other (Poorly kempt) Neuro: Alert, Non Focal, Other (No nystagmus or tremor) Cardiovascular: Regular rate Respiratory: No respiratory distress Abdomen: Soft Extremities: No edema - Results Results: Laboratory Results WBC 5.7 x10^3/uL (4.8-10.8) 05/18/20 04:40 RBC 3.95 10^6/uL (4.70-6.10) L 05/18/20 04:40 Hgb 13.6 g/dL (14.0-18.0) L 05/18/20 04:40 Hct 40.5 % (42.0-52.0) L 05/18/20 04:40 MCV 102.5 fL (80.0-94.0) H 05/18/20 04:40 MCH 34.4 pg (27.0-31.0) H 05/18/20 04:40 MCHC 33.6 g/dL (32.0-36.0) 05/18/20 04:40 RDW 14.1 % (12.0-15.0) 05/18/20 04:40 Plt Count 141 10^3/uL (130-450) 05/18/20 04:40 MPV 11.3 fL (7.4-11.4) 05/18/20 04:40 Neut # (Auto) 2.8 10^3/uL (1.5-6.6) 05/18/20 04:40 Lymph # (Auto) 1.6 10^3/uL (1.5-3.5) 05/18/20 04:40 [place] # (Auto) 1.0 10^3/uL (0.0-1.0) 05/18/20 04:40 Eos # (Auto) 0.2 10^3/uL (0.0-0.7) 05/18/20 04:40 Baso # (Auto) 0.1 10^3/uL (0.0-0.1) 05/18/20 04:40 Absolute Nucleated RBC 0.00 x10^3/uL 05/18/20 04:40 Nucleated RBC % 0.0 /100WBC 05/18/20 04:40 PT 10.8 secs (9.9-12.6) 05/16/20 04:30 INR 0.9 (0.8-1.2) 05/16/20 04:30 VBG pH 7.465 (7.31-7.41) H 05/16/20 07:46 Ionized Calcium 1.02 mmol/L (1.15-1.33) L 05/16/20 07:46 Sodium 138 mmol/L (135-145) 05/18/20 04:40 Potassium 3.9 mmol/L (3.5-5.0) 05/18/20 04:40 Chloride 107 mmol/L (101-111) 05/18/20 04:40 Carbon Dioxide 23 mmol/L (21-32) 05/18/20 04:40 Anion Gap 8.0 (6-13) 05/18/20 04:40 BUN 10 mg/dL (6-20) 05/18/20 04:40 Creatinine 0.5 mg/dL (0.6-1.2) L 05/18/20 04:40 Estimated GFR (MDRD) 172 (>89) 05/18/20 04:40 Glucose 102 mg/dL (70-100) H 05/18/20 04:40 Lactic Acid 2.3 mmol/L (0.5-2.2) H 05/15/20 15:21 Calcium 8.9 mg/dL (8.5-10.3) 05/18/20 04:40 Phosphorus 4.1 mg/dL (2.5-4.6) 05/18/20 04:40 Magnesium 2.0 mg/dL (1.7-2.8) 05/18/20 04:40 Total Bilirubin 0.6 mg/dL (0.2-1.0) 05/18/20 04:40 AST 117 IU/L (10-42) H 05/18/20 04:40 ALT 97 IU/L (10-60) H 05/18/20 04:40 Alkaline Phosphatase 54 IU/L (42-121) 05/18/20 04:40 Total Protein 6.5 g/dL (6.7-8.2) L 05/18/20 04:40 Albumin 3.8 g/dL (3.2-5.5) 05/18/20 04:40 Globulin 2.7 g/dL (2.1-4.2) 05/18/20 04:40 Albumin/Globulin Ratio 1.4 (1.0-2.2) 05/18/20 04:40 Lipase 75 U/L (22-51) H 05/18/20 04:40 Urine Color YELLOW 05/15/20 11:28 Urine Clarity CLEAR (CLEAR) 05/15/20 11:28 Urine pH 7.5 PH (5.0-7.5) 05/15/20 11:28 Ur Specific [place] 1.010 (1.002-1.030) 05/15/20 11:28 Urine Protein 100 mg/dL (NEGATIVE) H 05/15/20 11:28 Urine Glucose (UA) NEGATIVE mg/dL (NEGATIVE) 05/15/20 11:28 Urine Ketones NEGATIVE mg/dL (NEGATIVE) 05/15/20 11:28 Urine Occult Blood SMALL (NEGATIVE) H 05/15/20 11:28 Urine Nitrite NEGATIVE (NEGATIVE) 05/15/20 11:28 Urine Bilirubin NEGATIVE (NEGATIVE) 05/15/20 11:28 Urine Urobilinogen 0.2 (NORMAL) E.U./dL (NORMAL) 05/15/20 11:28 Ur Leukocyte Esterase NEGATIVE (NEGATIVE) 05/15/20 11:28 Urine RBC 0-5 /HPF (0-5) 05/15/20 11:28 Urine WBC 0-3 /HPF (0-3) 05/15/20 11:28 Ur Squamous Epith Cells RARE Squamous (<= Few) 05/15/20 11:28 Urine Bacteria Rare /HPF (None Seen) 05/15/20 11:28 Ur Microscopic Review INDICATED 05/15/20 11:28 Urine Culture Comments NOT INDICATED 05/15/20 11:28 Nasal Screen MRSA (PCR) NEGATIVE (NEGATIVE) 05/15/20 16:10 Salicylates < 6.0 mg/dL 05/15/20 11:48 Urine Opiates Screen NEGATIVE (NEGATIVE) 05/15/20 11:28 Ur Oxycodone Screen NEGATIVE (NEGATIVE) 05/15/20 11:28 Urine Methadone Screen NEGATIVE (NEGATIVE) 05/15/20 11:28 Ur Propoxyphene Screen NEGATIVE (NEGATIVE) 05/15/20 11:28 Acetaminophen < 10 ug/mL (10-30) L 05/15/20 11:48 Ur Barbiturates Screen NEGATIVE (NEGATIVE) 05/15/20 11:28 Ur Tricyclics Screen NEGATIVE (NEGATIVE) 05/15/20 11:28 Ur Phencyclidine Scrn NEGATIVE (NEGATIVE) 05/15/20 11:28 Ur Amphetamine Screen NEGATIVE (NEGATIVE) 05/15/20 11:28 U Methamphetamines Scrn NEGATIVE (NEGATIVE) 05/15/20 11:28 U Benzodiazepines Scrn POSITIVE (NEGATIVE) H 05/15/20 11:28 Urine Cocaine Screen NEGATIVE (NEGATIVE) 05/15/20 11:28 U Cannabinoids Screen POSITIVE (NEGATIVE) H 05/15/20 11:28 Ethyl Alcohol 276.1 mg/dL 05/15/20 11:48 Coronavirus (PCR) NEGATIVE 05/15/20 16:10
--- NOTE | 2020-05-18 12:50 | XRAY Report ---
PROCEDURE: Chest 1 View X-Ray INDICATIONS: F/U pneumonia pleural effusion TECHNIQUE: One view of the chest was acquired. COMPARISON: Chest radiographs 05/15/2020, 03/16/2020, 03/14/2020. Correlation is also made with CT 05/15. FINDINGS: Surgical changes and devices: None. Lungs and pleura: There is persistent blunting of the left costophrenic angle, with a left lower lung probably defined opacity seen. The right lung appears clear. No pneumothorax is seen. Mediastinum: The aorta is prominent and tortuous. The cardiac contours are within normal limits. Bones and chest wall: No suspicious bony lesions. Overlying soft tissues appear unremarkable. IMPRESSION: Stable, persistent left lower lung opacity, which is likely related to infiltrate. Differential diagn osis includes persistent atelectasis. Stable small left-sided pleural effusion. Reviewed by: Byron Armando MD on 05/18/2020 11:48 AM AKMAURO Approved by: Byron Armando MD on 05/18/2020 11:48 AM AKMAURO Station ID: [id number]
[2020-05-18] MEDS: D5NS W/20 MEQ KCL 1,000 ML IV SCH (13:04)
[2020-05-18] MEDS ORDERED: IOVERSOL 320 100 ML VIAL IVP ONE ×2 (13:51→14:58)
--- NOTE | 2020-05-18 15:26 | CT Report ---
PROCEDURE: ABDOMEN W INDICATIONS: Elevated Lipase, alcohol abuse CONTRAST: IV CONTRAST: Optiray 320 ml: 100 PO CONTRAST: *NO PO CONTRAST TECHNIQUE: After the administration of oral and intravenous contrast, 5 mm thick sections acquired from the diap hragms to the iliac crests. 5 mm thick coronal and sagittal reformats were acquired. For radiation dose reduction, the following was used: automated exposure control, adjustment of mA and/or kV accor ding to patient size. COMPARISON: None. FINDINGS: Image quality: Patient motion artifact limits evaluation somewhat. Lung bases: There is marked pleural thickening at the left lung base with a trace low-density pleural effusion noted. Probable scar, rounded atelectasis, or compressive atelectasis is also partially iesha racterized at the left lung base. The right lung bases clear. Heart is normal size. Solid organs: The liver is normal in size and diffusely hypodense suggesting fatty infiltration. Sple en is normal in size and enhancement. Gallbladder is unremarkable Biliary system is non dilated. Pa ncreas enhances normally. No adrenal nodules. Kidneys are normal in size, without hydronephrosis. Peritoneum and bowel: Contrast enhanced bowel loops appear normal in caliber. No free fluid or air. Nodes and vessels: No retroperitoneal or mesenteric adenopathy by size criteria. Aorta and inferior vena cava are normal in size. Multiple surgical clips are present along the right retroperitoneal r egion suggesting prior susan dissection. Bones: No suspicious bony lesions. No vertebral body compression fractures. Miscellaneous: No ventral hernias. IMPRESSION: 1. No acute intra-abdominal findings. Specifically, the pancreas demonstrates normal size and enhance ment. No peripancreatic fat stranding to suggest acute pancreatitis. No calcification or pancreatic n ecrosis to suggest prior pancreatitis. 2. Hepatic steatosis. 3. Findings suspicious for rounded atelectasis and chronic pleural thickening and trace effusion. Ho wever, neoplasm cannot be excluded and continued surveillance is recommended. Reviewed by: Nataliia Melendez MD on 05/18/2020 3:25 PM PDT Approved by: Nataliia Melendez MD on 05/18/2020 3:25 PM PDT Station ID: [id number]
[2020-05-19] MEDS: SODIUM CHLORIDE FLUSH 0.9% 10 ML SYRINGE IVP SCH ×3 (01:12→16:46)
[2020-05-19] MEDS: LORazepam 100MG/100ML D5W 100 ML IV SCH (01:36)
[2020-05-19] MEDS: PIPERACILLIN/TAZOBACTAM 3.375 GM in SODIUM CHLORIDE 0.9% MINIBAG 100 ML IV SCH ×3 (04:21→21:02)
[2020-05-19 05:13] LABS: BASOPHILS # (AUTO) 0.1 10^3/uL (0.0-0.1); BASOPHILS % (AUTO) 0.9 %; EOSINOPHILS # (AUTO) 0.2 10^3/uL (0.0-0.7); EOSINOPHILS % (AUTO) 3.7 %; HGB - HEMOGLOBIN 12.8 g/dL (14.0-18.0); LYMPHOCYTES # (AUTO) 1.7 10^3/uL (1.5-3.5); MEAN CORPUSCULAR HEMOGLOBIN 33.7 pg (27.0-31.0); MEAN CORPUSCULAR HGB CONC 32.9 g/dL (32.0-36.0); MEAN CORPUSCULAR VOLUME 102.4 fL (80.0-94.0); MEAN PLATELET VOLUME 11.2 fL (7.4-11.4); MONOCYTES % (AUTO) 17.2 %; NEUTROPHILS # (AUTO) 2.9 10^3/uL (1.5-6.6); NEUTROPHILS % (AUTO) 48.9 %; PLT - PLATELET COUNT 146 10^3/uL (130-450); RED CELL DISTRIBUTION WIDTH 14.1 % (12.0-15.0); WHITE BLOOD COUNT 5.9 x10^3/uL (4.8-10.8)
[2020-05-19 05:32] LABS: ALBUMIN 3.7 g/dL (3.2-5.5); ALBUMIN/GLOBULIN RATIO 1.4 (1.0-2.2); BILIRUBIN,TOTAL 0.7 mg/dL (0.2-1.0); CALCIUM 8.8 mg/dL (8.5-10.3); CREATININE 0.5 mg/dL (0.6-1.2); TOTAL PROTEIN 6.3 g/dL (6.7-8.2)
[2020-05-19] MEDS: chlordiazePOXIDE 25 MG CAPSULE PO SCH ×4 (06:06→23:39)
[2020-05-19] MEDS: PANTOPRAZOLE 40 MG TABLET PO SCH ×2 (06:07→15:48)
[2020-05-19 06:25] LABS: MAGNESIUM 2.2 mg/dL (1.7-2.8); PHOSPHORUS 4.5 mg/dL (2.5-4.6)
[2020-05-19] MEDS ORDERED: POTASSIUM CHLORIDE 20 MEQ TABLET PO ONE (08:00)
[2020-05-19] MEDS: FLUCONAZOLE 100 MG TABLET PO SCH (09:05)
[2020-05-19] MEDS: guaiFENesin 600 MG TABLET PO SCH ×2 (09:05→21:02)
[2020-05-19] MEDS: THIAMINE 100 MG TABLET PO SCH (09:05)
[2020-05-19] MEDS: PRENATAL VITAMIN TABLET PO SCH (09:05)
--- NOTE | 2020-05-19 11:59 | PROVIDER PROGRESS NOTE ---
Assessment/Plan - Problem List (1) Alcohol withdrawal Assessment/Plan: Weaning down IV Ativan to off today. Librium p.o. continue scheduled which appears to have helped him through the alcohol withdrawal. He is not yet ready for social work, mental health eval until he is off Ativan. (2) HCAP (healthcare-associated pneumonia) Assessment/Plan: The chest x-ray yesterday showed unchanged findings of consolidation versus round mass plus effusion. Continue with empiric iv antibiotics using Zosyn. A 7-day course is planned, today is day #4 of Zosyn. (3) Pleural effusion Assessment/Plan: If can change but there has been no increase Will discontinue IV fluids, his oral intake is adequate for hydration. (4) Elevated lipase Assessment/Plan: CT of the abdomen was done yesterday focusing on the pancreas. There were no signs of fluid, stranding, cyst formation and pancreatitis was not suggested. He continues to have low level elevated flat lipase levels. He probably has a low-grade of chronic pancreatitis secondary to his alcohol abuse. Since he has no abdominal pain, nausea vomiting, tolerates solid foods, will just observe the lipase level intermittently. (5) Suicidal ideation Assessment/Plan: He voiced this at the time of admission. Mental health eval has not yet occurred because of need for sedatives. When he is medically cleared, will order social work for mental health eval. Until that time he has one-to-one observation due to the suicidal ideation. (6) Alcohol abuse Assessment/Plan: LFTs are decreasing slowly. Continue with daily thiamine orally and a multivitamin orally. He is very interested in alcohol detox/rehab. He has voiced that he thinks he cannot stop drinking which makes him depressed, and the alcohol is how he deals with his depression. (7) Tobacco use Assessment/Plan: Had no nicotine urges. He has declined the nicotine patch several times, because it added to a tremor. The prn Nicotine patch has been discontinued therefore. - Current Meds Current Meds: Current Medications Generic Name Dose Route Start Last Admin Trade Name Freq PRN Reason Stop Dose Admin Chlordiazepoxide HCl 50 mg 05/18/20 12:00 05/19/20 11:47 Librium PO 50 mg Q6HR BOB Administration Fluconazole 100 mg 05/17/20 12:00 05/19/20 09:05 Diflucan PO 05/22/20 00:01 100 mg DAILY BOB Administration Guaifenesin 600 mg 05/15/20 21:00 05/19/20 09:05 Mucinex PO 600 mg BID BOB Administration Lorazepam 100 mls @ 5 mls/hr 05/15/20 23:00 05/19/20 11:00 Ativan IV 2 mg/hr .Q20H BOB 2 mls/hr Titration Protocol 5 MG/HR Piperacillin Sod/Tazobactam 100 mls @ 25 mls/hr 05/16/20 20:00 05/19/20 11:47 Sod 3.375 gm/ Sodium Chloride IV 25 mls/hr Q8H BOB Administration Lorazepam 1 mg 05/15/20 15:08 05/17/20 08:45 Ativan Inj (Vial) IVP 1 mg Q30M PRN Administration CIWA >8 Protocol Pantoprazole Sodium 40 mg 05/15/20 16:00 05/19/20 06:07 Protonix PO 40 mg BIDAC BOB Administration Multivit/Folic Acid/Iron 1 tab 05/16/20 08:00 05/19/20 09:05 Trinatal Rx 1 PO 1 tab DAILYWM BOB Administration Sodium Chloride 10 ml 05/15/20 17:00 05/19/20 09:06 Normal Saline Flush 0.9% IVP 10 ml 0100,0900,1700 BOB Administration Sodium Chloride 10 ml 05/15/20 15:01 05/17/20 08:51 Normal Saline Flush 0.9% IVP 10 ml PRN PRN Administration NEEDED PER PROVIDER ORDERS Thiamine HCl 100 mg 05/16/20 09:00 05/19/20 09:05 Vitamin B-1 PO 100 mg DAILY BOB Administration - Lab Result Fish Bone Diagrams: 05/19/20 04:25 05/19/20 04:25 - Additional Planning My Orders: My Active Orders 05/18/20 12:00 chlordiazePOXIDE [Librium] 50 mg PO Q6HR 05/18/20 12:54 CPT - Chest Physical Therapy [RC] TID IS [Incentive Spirometry - RT] [RC] TID 05/19/20 07:59 Miscellaenous Nursing Order [RC] ONCE 05/20/20 05:00 CBC - COMP BLD CT W/AUTO DIFF [HEME] DAILYLAB CMP [COMPREHENSIVE METABOLIC PANEL] [CHEM] DAILYLAB LIPASE [CHEM] DAILYLAB MAGNESIUM [CHEM] DAILYLAB PHOSPHORUS [CHEM] DAILYLAB 05/21/20 05:00 CBC - COMP BLD CT W/AUTO DIFF [HEME] DAILYLAB CMP [COMPREHENSIVE METABOLIC PANEL] [CHEM] DAILYLAB LIPASE [CHEM] DAILYLAB Subjective - Subjective Patient Reports: Feeling Better, Resting Comfortably, No Complaints (Is much more communicative today and animated without any tremor or nystagmus.) Objective Vital Signs: Vital Signs - 24 hr 05/18/20 05/18/20 05/18/20 12:00 16:43 20:43 Temperature 97.5 C H 36.6 C 36.5 C Heart Rate [ 78 75 73 Monitoring electrodes] Respiratory 20 16 23 Rate Blood Pressure 127/90 H 136/93 H [Left Brachial artery] Blood Pressure 124/77 [Right Brachial artery] O2 Saturation 97 97 98 05/18/20 05/19/20 05/19/20 23:41 04:29 09:00 Temperature 36.6 C 36.4 C L 36.1 C L Heart Rate [ 65 64 67 Monitoring electrodes] Respiratory 26 H 19 16 Rate Blood Pressure 103/70 136/91 H 136/87 H [Left Brachial artery] Blood Pressure [Right Brachial artery] O2 Saturation 97 98 99 Oxygen O2 Source Room air I&O (Last 24 Hrs): Intake and Output Totals x24h 05/17/20 05/18/20 05/19/20 23:59 23:59 23:59 Intake Total 3188.065 3833.166 1047.500 Output Total 3900 2150 0 Balance -310.346 3918.166 1047.500 General: Alert, Oriented x3 HEENT: Mucous membr. moist/pink, Other (Poorly kempt) Neck: Supple Neuro: Alert, Non Focal, Other (No tremor (Ativan is down to 2 IV drip)) Cardiovascular: Regular rate, No murmurs Respiratory: No respiratory distress, Breath sounds nml Extremities: No clubbing, No edema - Results Results: Laboratory Results WBC 5.9 x10^3/uL (4.8-10.8) 05/19/20 04:25 RBC 3.80 10^6/uL (4.70-6.10) L 05/19/20 04:25 Hgb 12.8 g/dL (14.0-18.0) L 05/19/20 04:25 Hct 38.9 % (42.0-52.0) L 05/19/20 04:25 MCV 102.4 fL (80.0-94.0) H 05/19/20 04:25 MCH 33.7 pg (27.0-31.0) H 05/19/20 04:25 MCHC 32.9 g/dL (32.0-36.0) 05/19/20 04:25 RDW 14.1 % (12.0-15.0) 05/19/20 04:25 Plt Count 146 10^3/uL (130-450) 05/19/20 04:25 MPV 11.2 fL (7.4-11.4) 05/19/20 04:25 Neut # (Auto) 2.9 10^3/uL (1.5-6.6) 05/19/20 04:25 Lymph # (Auto) 1.7 10^3/uL (1.5-3.5) 05/19/20 04:25 [place] # (Auto) 1.0 10^3/uL (0.0-1.0) 05/19/20 04:25 Eos # (Auto) 0.2 10^3/uL (0.0-0.7) 05/19/20 04:25 Baso # (Auto) 0.1 10^3/uL (0.0-0.1) 05/19/20 04:25 Absolute Nucleated RBC 0.00 x10^3/uL 05/19/20 04:25 Nucleated RBC % 0.0 /100WBC 05/19/20 04:25 PT 10.8 secs (9.9-12.6) 05/16/20 04:30 INR 0.9 (0.8-1.2) 05/16/20 04:30 VBG pH 7.465 (7.31-7.41) H 05/16/20 07:46 Ionized Calcium 1.02 mmol/L (1.15-1.33) L 05/16/20 07:46 Sodium 138 mmol/L (135-145) 05/19/20 04:25 Potassium 3.3 mmol/L (3.5-5.0) L 05/19/20 04:25 Chloride 107 mmol/L (101-111) 05/19/20 04:25 Carbon Dioxide 25 mmol/L (21-32) 05/19/20 04:25 Anion Gap 6.0 (6-13) 05/19/20 04:25 BUN 12 mg/dL (6-20) 05/19/20 04:25 Creatinine 0.5 mg/dL (0.6-1.2) L 05/19/20 04:25 Estimated GFR (MDRD) 172 (>89) 05/19/20 04:25 Glucose 107 mg/dL (70-100) H 05/19/20 04:25 Lactic Acid 2.3 mmol/L (0.5-2.2) H 05/15/20 15:21 Calcium 8.8 mg/dL (8.5-10.3) 05/19/20 04:25 Phosphorus 4.5 mg/dL (2.5-4.6) 05/19/20 04:25 Magnesium 2.2 mg/dL (1.7-2.8) 05/19/20 04:25 Total Bilirubin 0.7 mg/dL (0.2-1.0) 05/19/20 04:25 AST 76 IU/L (10-42) H 05/19/20 04:25 ALT 87 IU/L (10-60) H 05/19/20 04:25 Alkaline Phosphatase 47 IU/L (42-121) 05/19/20 04:25 Total Protein 6.3 g/dL (6.7-8.2) L 05/19/20 04:25 Albumin 3.7 g/dL (3.2-5.5) 05/19/20 04:25 Globulin 2.6 g/dL (2.1-4.2) 05/19/20 04:25 Albumin/Globulin Ratio 1.4 (1.0-2.2) 05/19/20 04:25 Lipase 69 U/L (22-51) H 05/19/20 04:25 Urine Color YELLOW 05/15/20 11:28 Urine Clarity CLEAR (CLEAR) 05/15/20 11:28 Urine pH 7.5 PH (5.0-7.5) 05/15/20 11:28 Ur Specific [place] 1.010 (1.002-1.030) 05/15/20 11:28 Urine Protein 100 mg/dL (NEGATIVE) H 05/15/20 11:28 Urine Glucose (UA) NEGATIVE mg/dL (NEGATIVE) 05/15/20 11:28 Urine Ketones NEGATIVE mg/dL (NEGATIVE) 05/15/20 11:28 Urine Occult Blood SMALL (NEGATIVE) H 05/15/20 11:28 Urine Nitrite NEGATIVE (NEGATIVE) 05/15/20 11:28 Urine Bilirubin NEGATIVE (NEGATIVE) 05/15/20 11:28 Urine Urobilinogen 0.2 (NORMAL) E.U./dL (NORMAL) 05/15/20 11:28 Ur Leukocyte Esterase NEGATIVE (NEGATIVE) 05/15/20 11:28 Urine RBC 0-5 /HPF (0-5) 05/15/20 11:28 Urine WBC 0-3 /HPF (0-3) 05/15/20 11:28 Ur Squamous Epith Cells RARE Squamous (<= Few) 05/15/20 11:28 Urine Bacteria Rare /HPF (None Seen) 05/15/20 11:28 Ur Microscopic Review INDICATED 05/15/20 11:28 Urine Culture Comments NOT INDICATED 05/15/20 11:28 Nasal Screen MRSA (PCR) NEGATIVE (NEGATIVE) 05/15/20 16:10 Salicylates < 6.0 mg/dL 05/15/20 11:48 Urine Opiates Screen NEGATIVE (NEGATIVE) 05/15/20 11:28 Ur Oxycodone Screen NEGATIVE (NEGATIVE) 05/15/20 11:28 Urine Methadone Screen NEGATIVE (NEGATIVE) 05/15/20 11:28 Ur Propoxyphene Screen NEGATIVE (NEGATIVE) 05/15/20 11:28 Acetaminophen < 10 ug/mL (10-30) L 05/15/20 11:48 Ur Barbiturates Screen NEGATIVE (NEGATIVE) 05/15/20 11:28 Ur Tricyclics Screen NEGATIVE (NEGATIVE) 05/15/20 11:28 Ur Phencyclidine Scrn NEGATIVE (NEGATIVE) 05/15/20 11:28 Ur Amphetamine Screen NEGATIVE (NEGATIVE) 05/15/20 11:28 U Methamphetamines Scrn NEGATIVE (NEGATIVE) 05/15/20 11:28 U Benzodiazepines Scrn POSITIVE (NEGATIVE) H 05/15/20 11:28 Urine Cocaine Screen NEGATIVE (NEGATIVE) 05/15/20 11:28 U Cannabinoids Screen POSITIVE (NEGATIVE) H 05/15/20 11:28 Ethyl Alcohol 276.1 mg/dL 05/15/20 11:48 Coronavirus (PCR) NEGATIVE 05/15/20 16:10
[2020-05-19 16:05] LABS: BASOPHILS # (AUTO) 0.1 10^3/uL (0.0-0.1); BASOPHILS % (AUTO) 0.9 %; EOSINOPHILS # (AUTO) 0.1 10^3/uL (0.0-0.7); EOSINOPHILS % (AUTO) 1.7 %; HGB - HEMOGLOBIN 13.9 g/dL (14.0-18.0); LYMPHOCYTES # (AUTO) 1.4 10^3/uL (1.5-3.5); LYMPHOCYTES % (AUTO) 21.9 %; MEAN CORPUSCULAR HEMOGLOBIN 34.9 pg (27.0-31.0); MEAN CORPUSCULAR HGB CONC 33.8 g/dL (32.0-36.0); MEAN CORPUSCULAR VOLUME 103.3 fL (80.0-94.0); MEAN PLATELET VOLUME 10.8 fL (7.4-11.4); MONOCYTES % (AUTO) 14.9 %; NEUTROPHILS # (AUTO) 3.9 10^3/uL (1.5-6.6); NEUTROPHILS % (AUTO) 59.8 %; PLT - PLATELET COUNT 163 10^3/uL (130-450); RED BLOOD COUNT 3.98 10^6/uL (4.70-6.10); RED CELL DISTRIBUTION WIDTH 14.3 % (12.0-15.0); WHITE BLOOD COUNT 6.6 x10^3/uL (4.8-10.8)
[2020-05-20] MEDS: SODIUM CHLORIDE FLUSH 0.9% 10 ML SYRINGE IVP PRN ×2 (00:37→20:14)
[2020-05-20] MEDS: SODIUM CHLORIDE FLUSH 0.9% 10 ML SYRINGE IVP SCH ×3 (01:47→16:55)
[2020-05-20] MEDS: PIPERACILLIN/TAZOBACTAM 3.375 GM in SODIUM CHLORIDE 0.9% MINIBAG 100 ML IV SCH ×3 (04:30→20:14)
[2020-05-20 05:56] LABS: BASOPHILS % (AUTO) 0.6 %; EOSINOPHILS # (AUTO) 0.2 10^3/uL (0.0-0.7); EOSINOPHILS % (AUTO) 2.4 %; HGB - HEMOGLOBIN 13.8 g/dL (14.0-18.0); LYMPHOCYTES # (AUTO) 1.6 10^3/uL (1.5-3.5); LYMPHOCYTES % (AUTO) 24.1 %; MEAN CORPUSCULAR HEMOGLOBIN 34.3 pg (27.0-31.0); MEAN CORPUSCULAR HGB CONC 33.3 g/dL (32.0-36.0); MONOCYTES % (AUTO) 14.8 %; NEUTROPHILS # (AUTO) 3.9 10^3/uL (1.5-6.6); NEUTROPHILS % (AUTO) 57.5 %; PLT - PLATELET COUNT 191 10^3/uL (130-450); RED BLOOD COUNT 4.02 10^6/uL (4.70-6.10); RED CELL DISTRIBUTION WIDTH 14.1 % (12.0-15.0); WHITE BLOOD COUNT 6.8 x10^3/uL (4.8-10.8)
[2020-05-20] MEDS: chlordiazePOXIDE 25 MG CAPSULE PO SCH ×4 (05:59→23:42)
[2020-05-20] MEDS: PANTOPRAZOLE 40 MG TABLET PO SCH ×2 (05:59→16:27)
[2020-05-20 06:12] LABS: ALBUMIN/GLOBULIN RATIO 1.2 (1.0-2.2); BILIRUBIN,TOTAL 0.7 mg/dL (0.2-1.0); CALCIUM 9.4 mg/dL (8.5-10.3); CREATININE 0.7 mg/dL (0.6-1.2); MAGNESIUM 2.1 mg/dL (1.7-2.8); PHOSPHORUS 4.2 mg/dL (2.5-4.6); TOTAL PROTEIN 7.3 g/dL (6.7-8.2)
[2020-05-20] MEDS: FLUCONAZOLE 100 MG TABLET PO SCH (08:46)
[2020-05-20] MEDS: PRENATAL VITAMIN TABLET PO SCH (08:46)
[2020-05-20] MEDS: THIAMINE 100 MG TABLET PO SCH (08:46)
[2020-05-20] MEDS: guaiFENesin 600 MG TABLET PO SCH ×2 (08:46→20:14)
--- NOTE | 2020-05-20 14:45 | PROVIDER PROGRESS NOTE ---
Assessment/Plan - Problem List (1) Alcohol withdrawal Assessment/Plan: The IV Ativan drip was stopped yesterday at noon. He was able to be discharged out of the ICU yesterday evening. He is still on a CIWA protocol, Ativan only as needed. The oral Librium has transition him out of withdrawal and will start tapering down the Librium now slowly. He is alert and awake and oriented x3 and can now have evaluation by social work for mental health eval regarding his depression, suicide, alcohol abuse (2) HCAP (healthcare-associated pneumonia) Assessment/Plan: He had a cough and was desaturating at the time of admission. He needed supplemental oxygen by nasal cannula. He is now saturating well on room air. There is no further cough. Blood cultures are negative to date. Sputum grew yeast. He is on oral antifungal treatment with a stop date already specified. Today is Day #5 on IV Zosyn, a 7-day course of iv treatment is advised because this is a recurrence or incomplete treatment of the pneumonia that he had 6 to 8 weeks ago when he was hospitalized here. (3) Pleural effusion Assessment/Plan: A follow-up chest x-ray was done several days after admission and did not show much improvement in either the consolidation or the pleural effusion. This would best be served with an outpatient work-up with a veneer taping machine offbearer since the type of consolidation is also somewhat atypical and that it is round, and a tumor could not be ruled out. Perhaps he has a postobstructive pneumonia. (4) Elevated lipase Assessment/Plan: He has low-grade flat elevation of his lipase. CT scan was done and showed a completely normal pancreas. I suspect he has chronic pancreatitis, mild and without significant symptoms, from his alcohol abuse. (5) Suicidal ideation Assessment/Plan: This was spoken by him in the ER at the time of admission. Today he will be medically cleared to have social work evaluation for mental health. He has been on one-to-one observation since admission. Awaiting whether this can be discontinued, after social work sees him. (6) Alcohol abuse Assessment/Plan: The patient is interested in quitting alcohol abuse. He said that he is depressed and uses his alcohol as a treatment for the depression. (7) Tobacco use Assessment/Plan: He refused his nicotine patch on multiple attempts while in the ICU, since it was adding to his hand tremor. The nicotine patch has been discontinued. - Current Meds Current Meds: Current Medications Generic Name Dose Route Start Last Admin Trade Name Freq PRN Reason Stop Dose Admin Chlordiazepoxide HCl 50 mg 05/18/20 12:00 05/20/20 12:49 Librium PO 05/21/20 00:01 50 mg Q6HR BOB Administration Fluconazole 100 mg 05/17/20 12:00 05/20/20 08:46 Diflucan PO 05/22/20 00:01 100 mg DAILY BOB Administration Guaifenesin 600 mg 05/15/20 21:00 05/20/20 08:46 Mucinex PO 600 mg BID BOB Administration Piperacillin Sod/Tazobactam 100 mls @ 25 mls/hr 05/16/20 20:00 05/20/20 12:49 Sod 3.375 gm/ Sodium Chloride IV 25 mls/hr Q8H BOB Administration Pantoprazole Sodium 40 mg 05/15/20 16:00 05/20/20 05:59 Protonix PO 40 mg BIDAC BOB Administration Multivit/Folic Acid/Iron 1 tab 05/16/20 08:00 05/20/20 08:46 Trinatal Rx 1 PO 1 tab DAILYWM BOB Administration Sodium Chloride 10 ml 05/15/20 17:00 05/20/20 08:46 Normal Saline Flush 0.9% IVP 10 ml 0100,0900,1700 BOB Administration Sodium Chloride 10 ml 05/15/20 15:01 05/20/20 00:37 Normal Saline Flush 0.9% IVP 10 ml PRN PRN Administration NEEDED PER PROVIDER ORDERS Thiamine HCl 100 mg 05/16/20 09:00 05/20/20 08:46 Vitamin B-1 PO 100 mg DAILY BOB Administration - Lab Result Fish Bone Diagrams: 05/20/20 05:23 05/20/20 05:23 - Additional Planning My Orders: My Active Orders 05/19/20 14:22 LORazepam INJ [Ativan Inj (Vial)] 2 mg IVP Q30M PRN 05/20/20 Social Work Consult [CONS] Routine 05/21/20 05:00 CBC - COMP BLD CT W/AUTO DIFF [HEME] DAILYLAB CMP [COMPREHENSIVE METABOLIC PANEL] [CHEM] DAILYLAB LIPASE [CHEM] DAILYLAB 05/21/20 06:00 chlordiazePOXIDE [Librium] 25 mg PO Q6HR Subjective - Subjective Patient Reports: Feeling Better, Other (Wants to take a "walk outside", not to smoke but is antsy.) Objective Vital Signs: Vital Signs - 24 hr 05/19/20 05/19/20 05/19/20 15:27 20:48 23:44 Temperature 36.8 C 37.3 C 36.4 C L Heart Rate [ 63 Brachial] Heart Rate [ 77 97 Monitoring electrodes] Respiratory 13 15 16 Rate Blood Pressure 111/74 133/88 H 117/76 [Left Brachial artery] O2 Saturation 99 98 98 05/20/20 07:29 Temperature 36.4 C L Heart Rate [ 69 Brachial] Heart Rate [ 69 Monitoring electrodes] Respiratory 18 Rate Blood Pressure 119/82 H [Left Brachial artery] O2 Saturation 99 Oxygen O2 Source Room air I&O (Last 24 Hrs): Intake and Output Totals x24h 05/18/20 05/19/20 05/20/20 23:59 23:59 23:59 Intake Total 3833.166 2000.334 2440 Output Total 2150 500 Balance 9841.679 7927.334 2440 General: Alert, Oriented x3 HEENT: Mucous membr. moist/pink, Other (Poorly kempt) Neck: Supple Neuro: Alert, Non Focal, Other (No tremor or nystagmus) Cardiovascular: Regular rate Respiratory: No respiratory distress, Breath sounds nml Abdomen: Soft Extremities: No edema - Results Results: Laboratory Results WBC 6.8 x10^3/uL (4.8-10.8) 05/20/20 05:23 RBC 4.02 10^6/uL (4.70-6.10) L 05/20/20 05:23 Hgb 13.8 g/dL (14.0-18.0) L 05/20/20 05:23 Hct 41.4 % (42.0-52.0) L 05/20/20 05:23 MCV 103.0 fL (80.0-94.0) H 05/20/20 05:23 MCH 34.3 pg (27.0-31.0) H 05/20/20 05:23 MCHC 33.3 g/dL (32.0-36.0) 05/20/20 05:23 RDW 14.1 % (12.0-15.0) 05/20/20 05:23 Plt Count 191 10^3/uL (130-450) 05/20/20 05:23 MPV 11.0 fL (7.4-11.4) 05/20/20 05:23 Neut # (Auto) 3.9 10^3/uL (1.5-6.6) 05/20/20 05:23 Lymph # (Auto) 1.6 10^3/uL (1.5-3.5) 05/20/20 05:23 [place] # (Auto) 1.0 10^3/uL (0.0-1.0) 05/20/20 05:23 Eos # (Auto) 0.2 10^3/uL (0.0-0.7) 05/20/20 05:23 Baso # (Auto) 0.0 10^3/uL (0.0-0.1) 05/20/20 05:23 Absolute Nucleated RBC 0.00 x10^3/uL 05/20/20 05:23 Nucleated RBC % 0.0 /100WBC 05/20/20 05:23 PT 10.8 secs (9.9-12.6) 05/16/20 04:30 INR 0.9 (0.8-1.2) 05/16/20 04:30 VBG pH 7.465 (7.31-7.41) H 05/16/20 07:46 Ionized Calcium 1.02 mmol/L (1.15-1.33) L 05/16/20 07:46 Sodium 138 mmol/L (135-145) 05/20/20 05:23 Potassium 4.0 mmol/L (3.5-5.0) 05/20/20 05:23 Chloride 103 mmol/L (101-111) 05/20/20 05:23 Carbon Dioxide 27 mmol/L (21-32) 05/20/20 05:23 Anion Gap 8.0 (6-13) 05/20/20 05:23 BUN 16 mg/dL (6-20) 05/20/20 05:23 Creatinine 0.7 mg/dL (0.6-1.2) 05/20/20 05:23 Estimated GFR (MDRD) 117 (>89) 05/20/20 05:23 Glucose 97 mg/dL (70-100) 05/20/20 05:23 Lactic Acid 2.3 mmol/L (0.5-2.2) H 05/15/20 15:21 Calcium 9.4 mg/dL (8.5-10.3) 05/20/20 05:23 Phosphorus 4.2 mg/dL (2.5-4.6) 05/20/20 05:23 Magnesium 2.1 mg/dL (1.7-2.8) 05/20/20 05:23 Total Bilirubin 0.7 mg/dL (0.2-1.0) 05/20/20 05:23 AST 70 IU/L (10-42) H 05/20/20 05:23 ALT 88 IU/L (10-60) H 05/20/20 05:23 Alkaline Phosphatase 47 IU/L (42-121) 05/20/20 05:23 Total Protein 7.3 g/dL (6.7-8.2) 05/20/20 05:23 Albumin 4.0 g/dL (3.2-5.5) 05/20/20 05:23 Globulin 3.3 g/dL (2.1-4.2) 05/20/20 05:23 Albumin/Globulin Ratio 1.2 (1.0-2.2) 05/20/20 05:23 Lipase 81 U/L (22-51) H 05/20/20 05:23 Urine Color YELLOW 05/15/20 11:28 Urine Clarity CLEAR (CLEAR) 05/15/20 11:28 Urine pH 7.5 PH (5.0-7.5) 05/15/20 11:28 Ur Specific [place] 1.010 (1.002-1.030) 05/15/20 11:28 Urine Protein 100 mg/dL (NEGATIVE) H 05/15/20 11:28 Urine Glucose (UA) NEGATIVE mg/dL (NEGATIVE) 05/15/20 11:28 Urine Ketones NEGATIVE mg/dL (NEGATIVE) 05/15/20 11:28 Urine Occult Blood SMALL (NEGATIVE) H 05/15/20 11:28 Urine Nitrite NEGATIVE (NEGATIVE) 05/15/20 11:28 Urine Bilirubin NEGATIVE (NEGATIVE) 05/15/20 11:28 Urine Urobilinogen 0.2 (NORMAL) E.U./dL (NORMAL) 05/15/20 11:28 Ur Leukocyte Esterase NEGATIVE (NEGATIVE) 05/15/20 11:28 Urine RBC 0-5 /HPF (0-5) 05/15/20 11:28 Urine WBC 0-3 /HPF (0-3) 05/15/20 11:28 Ur Squamous Epith Cells RARE Squamous (<= Few) 05/15/20 11:28 Urine Bacteria Rare /HPF (None Seen) 05/15/20 11:28 Ur Microscopic Review INDICATED 05/15/20 11:28 Urine Culture Comments NOT INDICATED 05/15/20 11:28 Nasal Screen MRSA (PCR) NEGATIVE (NEGATIVE) 05/15/20 16:10 Salicylates < 6.0 mg/dL 05/15/20 11:48 Urine Opiates Screen NEGATIVE (NEGATIVE) 05/15/20 11:28 Ur Oxycodone Screen NEGATIVE (NEGATIVE) 05/15/20 11:28 Urine Methadone Screen NEGATIVE (NEGATIVE) 05/15/20 11:28 Ur Propoxyphene Screen NEGATIVE (NEGATIVE) 05/15/20 11:28 Acetaminophen < 10 ug/mL (10-30) L 05/15/20 11:48 Ur Barbiturates Screen NEGATIVE (NEGATIVE) 05/15/20 11:28 Ur Tricyclics Screen NEGATIVE (NEGATIVE) 05/15/20 11:28 Ur Phencyclidine Scrn NEGATIVE (NEGATIVE) 05/15/20 11:28 Ur Amphetamine Screen NEGATIVE (NEGATIVE) 05/15/20 11:28 U Methamphetamines Scrn NEGATIVE (NEGATIVE) 05/15/20 11:28 U Benzodiazepines Scrn POSITIVE (NEGATIVE) H 05/15/20 11:28 Urine Cocaine Screen NEGATIVE (NEGATIVE) 05/15/20 11:28 U Cannabinoids Screen POSITIVE (NEGATIVE) H 05/15/20 11:28 Ethyl Alcohol 276.1 mg/dL 05/15/20 11:48 Coronavirus (PCR) NEGATIVE 05/15/20 16:10
[2020-05-21] MEDS: SODIUM CHLORIDE FLUSH 0.9% 10 ML SYRINGE IVP SCH ×3 (00:57→15:56)
[2020-05-21] MEDS: LORazepam 2 MG/ML VIAL IVP PRN ×3 (02:19→12:00)
[2020-05-21] MEDS: PIPERACILLIN/TAZOBACTAM 3.375 GM in SODIUM CHLORIDE 0.9% MINIBAG 100 ML IV SCH ×2 (04:19→11:36)
[2020-05-21 05:56] LABS: BASOPHILS # (AUTO) 0.1 10^3/uL (0.0-0.1); BASOPHILS % (AUTO) 0.9 %; EOSINOPHILS # (AUTO) 0.2 10^3/uL (0.0-0.7); HGB - HEMOGLOBIN 13.5 g/dL (14.0-18.0); LYMPHOCYTES # (AUTO) 1.9 10^3/uL (1.5-3.5); LYMPHOCYTES % (AUTO) 29.7 %; MEAN CORPUSCULAR HEMOGLOBIN 33.9 pg (27.0-31.0); MEAN CORPUSCULAR HGB CONC 33.1 g/dL (32.0-36.0); MEAN CORPUSCULAR VOLUME 102.5 fL (80.0-94.0); MEAN PLATELET VOLUME 10.8 fL (7.4-11.4); MONOCYTES % (AUTO) 16.2 %; NEUTROPHILS # (AUTO) 3.2 10^3/uL (1.5-6.6); NEUTROPHILS % (AUTO) 49.7 %; PLT - PLATELET COUNT 190 10^3/uL (130-450); RED BLOOD COUNT 3.98 10^6/uL (4.70-6.10); RED CELL DISTRIBUTION WIDTH 14.2 % (12.0-15.0); WHITE BLOOD COUNT 6.3 x10^3/uL (4.8-10.8)
[2020-05-21 06:08] LABS: ALBUMIN 3.7 g/dL (3.2-5.5); ALBUMIN/GLOBULIN RATIO 1.2 (1.0-2.2); BILIRUBIN,TOTAL 0.7 mg/dL (0.2-1.0); CREATININE 0.7 mg/dL (0.6-1.2); TOTAL PROTEIN 6.8 g/dL (6.7-8.2)
[2020-05-21] MEDS: chlordiazePOXIDE 25 MG CAPSULE PO SCH ×2 (06:24→10:42)
[2020-05-21] MEDS: PANTOPRAZOLE 40 MG TABLET PO SCH ×2 (06:25→15:55)
[2020-05-21] MEDS: PRENATAL VITAMIN TABLET PO SCH (10:40)
[2020-05-21] MEDS: THIAMINE 100 MG TABLET PO SCH (10:40)
[2020-05-21] MEDS: guaiFENesin 600 MG TABLET PO SCH (10:41)
[2020-05-21] MEDS: FLUCONAZOLE 100 MG TABLET PO SCH (10:41)
[2020-05-21] MEDS ORDERED: DULoxetine 20 MG CAPSULE PO SCH (14:36)
--- NOTE | 2020-05-21 14:38 | Discharge Plan ---
Discharge Plan Problem Reviewed?: Yes Disposition: Home, Self Care Condition: Stable Prescriptions: chlordiazePOXIDE [Librium] 25 mg PO Q6HR PRN #15 capsule PRN Reason: Anxiety Amox/Clav 875/125 [Augmentin 875/125] 1 tab PO BID #6 tablet DULoxetine [Cymbalta] 20 mg PO DAILY #10 capsule Saccharomyces Boulardii [Florastor] 250 mg PO BID #6 capsule Diet: Regular Activity Restrictions: Activity as Tolerated Shower Restrictions: No (fall precaution) Instruction Topics: Chlordiazepoxide capsules, Duloxetine delayed-release capsules, Amoxicillin Clavulanic Acid tablets, Pneumonia Health Concerns: pneumonia, depression, alcoholism issue. Plan of Treatment: pt had pneumonia in the hospital, you are prescribed antibiotics for three days to finish the treatment course. social work professor evaluated and assessed your suicide idea, you has not tried to commit suicide before and has not tried to hurt anyone else. social work professor provide support recourse and suggest you can be safely d/c to home, and suggest your depression status, you are prescribed Cymbalta, advise you continue followup with your PCP to manage this medical issue. advise you quit alcohol, you agreed, social work professor also provide support recourse. Librium is prescribed PRN to help for your management of alcohol withdrawal. Care Goals: stabilization and improvement of your medical conditions Assessment: discussed care plan with you, and you understood and agreed. Additional Instructions or Follow Up instructions: you may followup with your PCP in one to two weeks. should your symptoms return or worsen, you may present ER or call 911 for help. No Smoking: If you smoke, Please STOP! Call for help.
--- NOTE | 2020-05-21 15:02 | DISCHARGE SUMMARY ---
Discharge Summary Admit Date: 05/15/20 Discharge Date: 05/21/20 Discharging Provider: Cezar Coon Condition at Discharge: Stable Discharge Disposition: 01 Home, Self Care Discharge Facility Name: home - DIAGNOSES Discharge Diagnoses with Status of Each Condition: (1) Alcohol withdrawal acute withdrawal was resolved and pt is stable. Patient was prescribed Librium for help patient withdrawal, patient stated he will quit alcohol drink. (2) HCAP (healthcare-associated pneumonia) Stable and resolved, Patient was treated intravenous of antibiotics for pneumonia For 7 days. Patient has 96% sats in room air.Patient walked in the hallway without shortness of breathing or cough.Patient was prescribed another 3 days antibiotics to finish the treatment course (3) Pleural effusion Stable and resolved. Patient has 96% sats in room air.Patient walked in the hallway without shortness of breathing or cough (4) Elevated lipase Stable and chronic. Patient denies any shelly pain, patient tolerated regular diet without nausea vomiting or diarrhea. (5) Suicidal ideation Resolved. Patient denies any more Suicidal ideation. Social work evaluated and assessed the patient, and social work believe patient can be safely discharged to home. (6) Alcohol abuse Patient reported he will quit alcohol drunk. Librium is prescribed PRN for patient for alcohol withdrawal (7) Tobacco use Patient report he will quit smoking. - HPI History of Present Illness: This is a 54 years old white male with history of alcohol abuse, who presents to the ER for cough and shortness of breathing. Patient reported he started to have cough and sputum production about 10 days ago then he also developed shortness of breathing. Patient was discharged in the hospital about a 4 weeks ago. Patient did stop drinking of alcohol after D/C With medication of Librium. But then he developed with drinking habits again. He started to have heavy drinking about a 3 weeks ago. Also patient did admit to being depression and having suicidal ideation. - HOSPITAL COURSE Hospital Course: Patient was admitted for pneumonia and suicide ideation. Patient was treated with antibiotics Zosyn in the hospital. Patient also developed severe alcohol withdrawal needed ativan drip and patient was transferred to the ICU. After the patient is stable from alcohol withdrawal and stable and controlled from pneumonia. Patient was counseled with social work after medical clearance. So cial work believe patient can be safely discharged to home after Social work evaluation and assessment for the patient. Patient was DC'd with 3 days antibiotics to finish pneumonia treatment course and PRN in Librium for helping of alcohol withdrawal. Patient also was prescribed Cymbalta for control of his depression.Patient was discharged as stable medical condition - ALLERGIES Allergies/Adverse Reactions: Allergies Allergy/AdvReac Type Severity Reaction Status Date / Time No Known Drug Allergies Allergy Verified 05/15/20 10:44 - MEDICATIONS Home Medications: Ambulatory Orders Medication Instructions Recorded Confirmed Vitamin [Trinatal Rx 1] 1 tab PO DAILYWM #15 tablet 03/19/20 05/15/20 Thiamine [Vitamin B-1] 100 mg PO DAILY #15 tablet 03/19/20 05/15/20 Amox/Clav 875/125 [Augmentin 1 tab PO BID #6 tablet 05/21/20 875/125] DULoxetine [Cymbalta] 20 mg PO DAILY #10 capsule 05/21/20 Saccharomyces Boulardii [Florastor] 250 mg PO BID #6 capsule 05/21/20 chlordiazePOXIDE [Librium] 25 mg PO Q6HR PRN #15 capsule 05/21/20 - PHYSICAL EXAM AT DISCHARGE General Appearance: positive: No acute distress, Alert. negative: Lethargic Eyes Bilateral: positive: Normal inspection, PERRL, No lid inflammation ENT: positive: ENT inspection nml, Pharynx nml, No signs of dehydration. negative: Purulent nasal drainage Neck: positive: Nml inspection, Thyroid nml, No JVD, Trachea midline. negative: Thyromegaly, Stiff neck, Tracheal deviation Respiratory: positive: Chest non-tender, No respiratory distress, Breath sounds nml. negative: Wheezes, Rales, Rhonchi Cardiovascular: positive: Regular rate & rhythm, No murmur, No gallop. negative: Irregularly irregular, Tachycardia, Bradycardia, Systolic murmur, Diastolic murmur Peripheral Pulses: positive: 2+ Abdomen: positive: Non-tender, No organomegaly, Nml bowel sounds, No distention. negative: Tenderness, Guarding, Rebound Back: positive: Nml inspection. negative: CVA tenderness (R), CVA tenderness (L) Skin: positive: Color nml, No rash, Warm, Dry. negative: Cyanosis, Diaphoresis, Pallor, Skin rash Extremities: positive: Non-tender, Full ROM, Nml appearance. negative: Calf tenderness, Wei's sign/cords Neurologic/Psychiatric: positive: Oriented x3, Motor nml, Sensation nml, Mood/affect nml. negative: Weakness, Sensory loss, Facial droop, Slurred/abnml speech, Depressed mood/affect - LABS Result Diagrams: 05/21/20 05:45 05/21/20 05:45 - FOLLOW UP Follow Up: pt had pneumonia in the hospital, you are prescribed antibiotics for three days to finish the treatment course. social science professor evaluated and assessed your suicide idea, you has not tried to commit suicide before and has not tried to hurt anyone else. social science professor provide support recourse and suggest you can be safely d/c to home, and suggest your depression status, you are prescribed Cymbalta, advise you continue followup with your PCP to manage this medical issue. advise you quit alcohol, you agreed, social science professor also provide support recourse. Librium is prescribed PRN to help for your management of alcohol withdrawal. you may followup with your PCP in one to two weeks. should your symptoms return or worsen, you may present ER or call 911 for help. - TIME SPENT Time Spent in Discharge (Minutes): 30
[2020-05-21 15:36] VITALS: BP 109/56
[2020-05-21] MEDS ORDERED: SACCHAROMYCES BOULARDII 250 MG CAPSULE PO SCH (17:00)
[2020-05-21] MEDS ORDERED: AMOX/CLAV 875 MG/125 MG TABLET PO SCH (19:00)
== END 2020-05-21 16:30 | disposition home or self-care (01) | DRG 194 ==
LOC: ED 10:33 → ICU 14:58 → MS2 05-19 19:04
PROVIDERS: ADMIT Internal Medicine; ATTEND Nurse Practitioner Gerontology
DX: J18.9 Pneumonia, unspecified organism (principal); R45.851 Suicidal ideations; J91.8 Pleural effusion in other conditions classified elsewhere; F10.239 Alcohol dependence with withdrawal, unspecified; F32.9 Major depressive disorder, single episode, unspecified; F17.210 Nicotine dependence, cigarettes, uncomplicated; E86.0 Dehydration; R74.8 Abnormal levels of other serum enzymes; Y95 Nosocomial condition; Z53.20 Procedure and treatment not carried out because of patient's decision for unspecified reasons
CPT/HCPCS: 36415; 71045; 71046; 71260; 74160; 80053; 80306; 80307; 80320; 80329; 81001; 82330; 83605; 83690; 83735; 84100; 85025; 85610; 87040; 87070; 87150; 87205; 87635; 94667; 94668; 96365; 96375; 99285; A9270; J2060; J3411; Q9967; 81003; 87086

== ENCOUNTER 2020-11-19 10:42 | Outpatient (CLI) | payer SELFPAY | END 2020-11-19 10:43 | disposition critical access hospital (66) | LOC: EMS 10:42 | PROVIDERS: ATTEND Surgery | DX: I46.9 Cardiac arrest, cause unspecified (principal) | CPT/HCPCS: A0425; A0427 ==

== ENCOUNTER 2020-11-19 11:08 | Emergency (ER) | payer SELFPAY ==
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
== END 2020-11-19 12:12 | disposition expired ==
LOC: EDUNIT# → EDBD → ED 11:08
DX: I46.9 Cardiac arrest, cause unspecified (principal); F17.200 Nicotine dependence, unspecified, uncomplicated
CPT/HCPCS: 92950; 99281